=== PATIENT | female | born 1945 | race Caucasian/White ===

== ENCOUNTER → 2016-10-25 14:39 | Outpatient (CLI) | payer MEDICARE ==
[2016-07-09 13:17] VITALS: BMI 32.6
[~2016-10-25 14:39] MED LIST: ACETAMINOPHEN325 MG PO; ADVAIR 100/501 DISK INH; ALOPHEN PILLS5 MG PO; ARTANE2 MG PO; BUMEX 1 MG TAB1 MG PO; BUMEX2 MG PO; CARAFATE1 G PO; CELEXA20 MG PO; CHRONULAC30 ML PO; CLEOCIN HCL150 MG PO; COLACE100 MG PO; COMBIVENT RESPIM4 GM INH; COUMADIN5 MG PO; DEMEROL50 MG PO; DIABETA5 MG PO; DIFLUCAN150 MG PO; DUONEB 2.5-0.5 M3 ML UPD; ELIQUIS2.5 MG PO; HUMALOG 30100 UNITS/ SC; IBUPROFEN200 MG PO; K-DUR20 MEQ PO; LANTUS SOL100 UNIT/1 SQ; LEXAPRO20 MG PO; LISINOPRIL-HCTZ1 T13 PO; LOVENOX120 MG/0.8; LOVENOX80 MG/0.8; MELATONIN 3 MG1 TAB PO; MIRALAX17 GM PO; NORCO 10/325 TA1 TA1 PO; NORVASC10 MG PO; OMEPRAZOLE20 M1 PO; PHENAZOPYRIDIN200 MG PO; PRILOSEC10 M1 PO; PROAIR HFA8.5 GM INH; PROTONIX 40 MG40 MG PO; PROTONIX20 MG PO; PROTONIX40 MG PO; PROZAC10 MG PO; REGLAN10 MG PO; RENA-VITE TABL0.8 MG PO; RENVELA800 MG PO; ROCEPHIN 1 GM/D51 G1 IM; SINEMET 25-1001 EACH PO; STERAPRED DS 1210 MG NG; TESSALON PERLE100 MG PO; VITAMIN D31000 UNI2 PO; XANAX0.25 MG PO; XIFAXAN550 MG PO; ZANTAC150 MG PO; ZEBETA5 MG PO; ZINC OXIDE 20 %30 GM; ZOFRAN4 MG PO
== END | disposition home or self-care (01) ==
LOC: D.CT 14:30
DX: R10.9 Unspecified abdominal pain (principal)

== ENCOUNTER → 2016-11-06 08:57 | Outpatient (CLI) | payer MEDICARE ==
[2016-07-09 13:17] VITALS: BMI 32.6
== END | disposition home or self-care (01) ==
LOC: D.NM 08:57
DX: R10.9 Unspecified abdominal pain (principal)

== ENCOUNTER 2017-01-07 15:14 | Inpatient (IN) | payer MEDICARE ==
[~2017-01-07] VITALS: Ht 160 cm; Wt 71.4 kg
--- NOTE | ~2017-01-07 | DS ---
PATIENT:TYREE HANNAH :43 MEDICAL RECORD: [id number] DISCHARGE SUMMARY ADMISSION DATE: 01/08/17 DISCHARGE DATE: 01/11/17 REASON FOR ADMISSION: Mental status changes with hepatic encephalopathy and acute cystitis with multiple bacteria. HOSPITAL COURSE: This is [id number] female was admitted with acute mental status changes. It has resolved and her mental status is back to baseline. GI was consulted. Dr. Uribe is recommending lactulose 30 cc b.i.d. We spent nearly an hour attempting to discharge this nice lady so the dictation is going to be brief, but I did spend over an hour, some due to computer issues. PHYSICAL EXAMINATION: GENERAL: She is alert and oriented times 3. Normocephalic. VITAL SIGNS: Stable. HEENT: Clear nares. Clear throat. No JVD or thyromegaly. CHEST: Regular rhythm. S1 and S2. LUNGS: Clear to auscultation. ABDOMEN: Nontender in all 4 quadrants. No clubbing, cyanosis or edema. Dialysis access is clean. MEDICATIONS: No changes in her medications other than the addition of Omnicef 300 mg one a day for 10 days. DISCHARGE INSTRUCTIONS: She is to follow up with [facility] for her dialysis. [facility] Continue her current diet, renal diet. No other medication changes other than lactulose 30 cc b.i.d. Greater than 30 minutes was spent on discharge. Stable on discharge. TRANSINT:[id number] Voice Confirmation ID: [id number] DOCUMENT ID: [id number] ERIS BAY MD CC: [id number] DICTATION DATE: 01/11/17 0758 ACCESS REP: 01/12/17 0236 DIS IN 01/11/17 [facility] [address] [place] [address]
[2017-01-07 16:19] LABS: BASOPHILS 0.3 % (0-2); HEMATOCRIT 32.8 % (36.0-48.0); HEMOGLOBIN 10.8 g/dL (12-16); LYMPHOCYTES 12.4 % (15-50); MCH 33.8 pg (26.0-34.0); MCHC 32.9 g/dL (31.0-37.0); MCV 102.5 fL (80.0-100.0); MEAN PLATELET VOLUME 11.1 fL (7.4-10.4); MONOCYTES 10.4 % (2-11); NEUTROPHILS 74.9 % (40-80); PLATELET COUNT 115 10x3/uL (130-400); RDW 13.9 % (11.5-14.5); WBC 6.4 10x3/uL (4.8-10.8)
[2017-01-07 16:37] LABS: ALBUMIN 3.1 g/dL (3.4-5.0); ANION GAP 11.4 mmol/L (8-16); BILIRUBIN - TOTAL 1.39 mg/dL (0.2-1.3); CARBON DIOXIDE 29.6 mmol/L (21.0-32.0); CREATININE - SERUM 3.6 mg/dL (0.6-1.3); PROTEIN - SERUM 8.5 g/dL (6.4-8.2); TROPONIN-I 0.053 ng/mL (0.000-0.060)
[2017-01-07 20:13] LABS: APPEARANCE HAZY (CLEAR); BILIRUBIN NEGATIVE (NEGATIVE); COLOR YELLOW (YELLOW); GLUCOSE NEGATIVE (NEGATIVE); KETONE NEGATIVE (NEGATIVE); LEUKOCYTE ESTERASE 2+ (NEGATIVE); NITRITE NEGATIVE (NEGATIVE); PROTEIN TRACE mg/dL (NEGATIVE); UROBILINOGEN NORMAL (NORMAL)
[2017-01-07 20:15] LABS: BACTERIA MANY /hpf (NONE SEEN); EPITHELIAL CELLS 0-5 /hpf (0-5); RED CELLS - URINE 0-5 /hpf (0-5)
[2017-01-07 20:31] LABS: UDS - AMPHET NEGATIVE QUAL (NEGATIVE); UDS - BARB NEGATIVE QUAL (NEGATIVE); UDS - BENZO NEGATIVE QUAL (NEGATIVE); UDS - COCAINE NEGATIVE QUAL (NEGATIVE); UDS - METH NEGATIVE QUAL (NEGATIVE); UDS - OPIATE NEGATIVE QUAL (NEGATIVE); UDS - PCP NEGATIVE QUAL (NEGATIVE); UDS - THC NEGATIVE QUAL (NEGATIVE)
--- NOTE | 2017-01-07 20:53 | NUR ---
RECIEVED TO ROOM 2133 FROM ER VIA WC. VITALS STABLE. IV TO RIGHT HAND SL. DRSG NOTED TO LEFT ARM AVF. PT DENIES PAIN OR NEEDS, AT THIS TIME, BED LOW, CL IN REACH, BOX ALARM PLACED ON PT FOR FALL PRECAUTIONS. WILL CONT TO MONITOR.
[2017-01-07 21:12] VITALS: BP 124/48
--- NOTE | 2017-01-07 22:20 | NUR ---
PLACED ON TELEMETRY, 80 SR WITH BBB, PER MT.
[2017-01-07 23:54] VITALS: BP 105/47
--- NOTE | 2017-01-08 00:42 | NUR ---
PAYROLL AUDITOR AT BEDSIDE FOR VS. NEEDS ADDRESSED AT THIS TIME. CALL LIGHT IN REACH. WILL CONT TO MONITOR.
[2017-01-08 00:48] VITALS: BP 124/48; BMI 26.2
--- NOTE | 2017-01-08 03:49 | NUR ---
PT INCONTINENT OF STOOL, PT CLEANED AND PADDING CHANGED.
[2017-01-08 04:05] VITALS: BP 104/43
--- NOTE | 2017-01-08 06:52 | NUR ---
RECEIVED REPORT FROM CHILD WELFARE CASEWORKER NURSE, TERRANCE MARTINS. PT IN BED, DENIES ANY NEEDS AT THIS TIME. CALL LIGHT IN REACH, NAD NOTED, WILL CONTINUE TO MONITOR.
[2017-01-08 08:16] VITALS: BP 171/85
[2017-01-08 11:51] VITALS: BP 111/47
--- NOTE | 2017-01-08 12:26 | NUR ---
INFORMED PT ABOUT WEARING SCD'S TO PREVENT CLOTS, PT REFUSED TO WEAR THEM AT THIS TIME. STATED THAT SHE WOULD WEAR THEM AT NIGHT. PT FEELING A NAUSEATED. WILL CALL AND ORDER SOMETHING FOR NAUSEA. PT DENIES ANY OTHER NEEDS AT THIS TIME, CALL LIGHT IN REACH, NAD NOTED, WILL CONTINUE TO MONITOR.
[2017-01-08 14:02] VITALS: Ht 160 cm; Wt 71.4 kg
--- NOTE | 2017-01-08 15:33 | NUR ---
DR. CUEVAS NOTIFIED ABOUT CRITICAL AMMONIA LEVEL OF 142. DR. CUEVAS STATED THAT HE WILL ORDER SOME KAYEXELATE AND CONSULT GI.
--- NOTE | 2017-01-08 15:35 | NUR ---
DR. PROCTOR NOTIFIED ABOUT CRITICAL AMMONIA LEVEL OF 142. DR. PROCTOR STATED THAT HE WOULD ORDER LACTULOSE AND CONSULT GI.
[2017-01-08 16:42] VITALS: BP 122/45
[2017-01-08 20:29] VITALS: BP 106/49
--- NOTE | 2017-01-08 21:54 | NUR ---
HS MEDS GIVEN. PT ALERT/NO C/O PAIN OR DISCOMFORT. BOX ALARM ATTACHED. CPOC.
[2017-01-09 00:10] VITALS: BP 141/63
[2017-01-09 05:28] VITALS: BP 121/62
[2017-01-09 07:15] LABS: % SATURATION 61 % (15-55); IRON 101 ug/dl (35-150); TOTAL IRON BIND CAPACITY 164 ug/dl (260-445); UNSAT IRON BIND CAPACITY 63 ug/dl (150-375)
[2017-01-09 08:09] LABS: BILIRUBIN - DIRECT 0.28 mg/dL (0.00-0.30); BILIRUBIN - TOTAL 0.8 mg/dL (0.2-1.3)
[2017-01-09 08:20] VITALS: BP 179/71
--- NOTE | 2017-01-09 09:29 | NUR ---
Wound Care: Sacrum: 0.5cm x 0.5cm x 0.7cm stage 3 pressure injury/pt states she's had it for "a long time". No drainage or odor noted, but the periwound is macerated. Pt is incontinent of bowels and bladder. Sacrum/left: 0.6cm x 0.3cm x 0.2cm stage 2 pressure injury. No odor or drainage noted, but periwound is macerated. Coccyx/right/left: Noted scarring from previous pressure injuries. Pt requires total care with each incontinent episode. Recommend covering sacral area with mepilex sacral dressing to protect. If dressing becomes soiled it will need to be changed. She can help with repositioning and requires assistance q2h in doing so to protect her skin and decrease risk of further issues. Wound care will continue to monitor.
--- NOTE | 2017-01-09 13:27 | CN ---
PATIENT NAME:TYREE HANNAH MEDICAL RECORD: [id number] : 43 LOCATION:D. D.2133 ADMIT DATE: 01/08/17 ACCOUNT: [id number] CONSULTING PHYSICIAN: DAVIDA BENNETT MD REFERRING PHYSICIAN: CRISS PROCTOR MD DATE OF CONSULTATION: 01/08/2017 Gastrointestinal Consultation REFERRING PHYSICIAN: Criss Proctor M.D. HISTORY OF PRESENT ILLNESS: The patient is a 71-year-old white female with history of end-stage renal disease on hemodialysis, hypertension, coronary artery disease, valvular heart disease, status post aortic valve replacement, who basically was admitted with some confusion. Workup thus far includes ultrasound of the abdomen, which revealed possible cirrhosis, but no ascites or mass. Ammonia level is mildly elevated at 51. I was asked to see the patient in this regard. The patient seems a little lethargic, but is fairly alert and oriented times 3. She answered my questions fairly easily. She denies any history of liver disease or alcohol use as far as she knows. PAST MEDICAL HISTORY: As above. She also has Parkinson disease, chronic neuropathy and apparently had ovarian cancer. PAST SURGICAL HISTORY: Remarkable for cholecystectomy about 3 years ago, repair of a hip fracture, left knee replacement, ventral hernia repair, couple of C-sections, hysterectomy, aortic valve replacement, C-spine surgery. ALLERGIES: HEPARIN, NPH, SULFA, CELEXA, LISINOPRIL, CODEINE, MORPHINE, AND EFFEXOR. HOME MEDICATIONS: Include Protonix, Prozac, Sinemet, bisacodyl, MiraLax, Renvela, Colace, melatonin, Zofran and ProAir. FAMILY HISTORY: Negative for GI diseases. The patient is a nonsmoker, nondrinker at present. REVIEW OF SYSTEMS: Noncontributory other than HPI. PHYSICAL EXAMINATION: GENERAL: Reveals an elderly, somewhat lethargic white female in no acute distress. VITAL SIGNS: Stable. She is afebrile. CHEST: Clear. HEART: Regular rate and rhythm. ABDOMEN: Soft, nontender. EXTREMITIES: No edema. LABORATORY DATA: Reveals white count of 6000, hematocrit 32, MCV of 102, platelet count 115,000. Electrolytes normal. BUN 40, creatinine 3.6, total bilirubin 1.4, AST 44, ALT 31, alkaline phosphatase 251, ammonia levels 51, albumin 3.1 and tox screen is negative. Alcohol level was 0. CONSULT REPORT [id number] TYREE HANNAH IMPRESSION: 1. Mild confusion, possibly due to mild underlying hepatic encephalopathy, but no known history of cirrhosis. 2. History of end-stage renal disease on hemodialysis, history of hypertension, COPD, valvular heart disease, status post aortic valve replacement. 3. Macrocytosis. RECOMMENDATION: 1. Liver, spleen scan. 2. Check a fiber SPECT level. 3. Check a elizalde liver lab. 4. Check B12 and folate level. 5. Okay with lactulose for now. She was started on today. TRANSINT:[id number] Voice Confirmation ID: [id number] DOCUMENT ID: [id number] DAVIDA BENNETT MD at 1327 CC: CRISS PROCTOR MD [id number] DICTATION DATE: 01/08/171841 RUBBER STAMP MAKER: 01/09/17 0946 ADM IN [facility] [address] [place] [address]
--- NOTE | 2017-01-09 14:13 | NUR ---
DIALYSIS COORDINATOR: [facility]: Notified by Onur CORDOBA of patient needing to be setup for OPHD. DC will initiate placement process. DIDI HOLT.
[2017-01-09 14:21] LABS: BASOPHILS 0.5 % (0-2); EOSINOPHILS 4.9 % (0-7); HEMOGLOBIN 10.4 g/dL (12-16); LYMPHOCYTES 15.9 % (15-50); MCH 34.2 pg (26.0-34.0); MCHC 32.5 g/dL (31.0-37.0); MONOCYTES 13.3 % (2-11); NEUTROPHILS 65.4 % (40-80); PLATELET COUNT 131 10x3/uL (130-400); RBC 3.04 10x6/uL (4.00-5.40); RDW 14.4 % (11.5-14.5)
[2017-01-09 14:23] LABS: MCV 105.3 fL (80.0-100.0)
[2017-01-09 14:27] LABS: ANION GAP 16.7 mmol/L (8-16); CALCIUM 8.9 mg/dL (8.5-10.1)
[2017-01-09 14:28] LABS: CREATININE - SERUM 5.7 mg/dL (0.6-1.3); POTASSIUM - SERUM 3.7 mmol/L (3.5-5.1)
[2017-01-09 16:02] VITALS: BP 153/71
--- NOTE | 2017-01-09 17:32 | NUR ---
RESTING IN BED. DIALYSIS TODAY AND LIVER SCAN COMPLETE. DENIES PAIN OR SOB. SITTING UP IN BED EATING. WOUND CARE NURSE ASSESS WOUND ON COCCYX. MEPOLEX DRESSING PLACED ON WOUND. DENIES ANY NEEDS. CONTINUE PLAN OF CARE AND SAFETY PRECAUTIONS.
[2017-01-09 20:00] VITALS: BP 158/57
--- NOTE | 2017-01-09 20:16 | NUR ---
PT RESTING IN BED. SR PER TELEMETRY. NONLABORED RESPIRATIONS ON ROOM AIR. SALINE LOCK TO RIGHT HAND. ALERT/ORIENTED. HAS LEFT ARM AVF. MEPILEX ON REAR WHERE PT HAS BREAKDOWN. CURRENTLY PT IN ROOM VISITING WITH FAMILY. CPOC. SEE SHIFT ASSESSMENT.
--- NOTE | 2017-01-09 22:32 | NUR ---
RESTING, WATCHING TV. HS MEDS GIVEN. SR PER TELEMETRY. RIGHT HAND SALINE LOCKED. LEFT ARM RESERVED FOR AVF. HAD HEMODIALYSIS TODAY. PT IS ALERT/ORIENTED AND CONVERSING APPROPRIATELY. CPOC.
[2017-01-10] VITALS: BP 121/57
[2017-01-10 04:00] VITALS: BP 132/58
[2017-01-10 06:27] LABS: BASOPHILS 0.4 % (0-2); EOSINOPHILS 4.2 % (0-7); HEMATOCRIT 29.5 % (36.0-48.0); LYMPHOCYTES 16.1 % (15-50); MCHC 33.9 g/dL (31.0-37.0); MEAN PLATELET VOLUME 11.5 fL (7.4-10.4); MONOCYTES 14.4 % (2-11); NEUTROPHILS 64.9 % (40-80); PLATELET COUNT 120 10x3/uL (130-400); RBC 2.86 10x6/uL (4.00-5.40); RDW 14.1 % (11.5-14.5); WBC 5.7 10x3/uL (4.8-10.8)
[2017-01-10 06:37] LABS: ANION GAP 10.5 mmol/L (8-16); CALCIUM 8.6 mg/dL (8.5-10.1); CARBON DIOXIDE 31.1 mmol/L (21.0-32.0); POTASSIUM - SERUM 3.6 mmol/L (3.5-5.1)
[2017-01-10 06:40] LABS: MCV 103.1 fL (80.0-100.0)
[2017-01-10 06:41] LABS: CREATININE - SERUM 4.2 mg/dL (0.6-1.3)
[2017-01-10 08:20] LABS: FOLATE (FOLIC ACID) - SERUM >20.0 ng/mL (>3.0)
[2017-01-10 08:26] VITALS: BP 186/70
[2017-01-10 09:17] LABS: ALPHA FETOPROTEIN -(TUMOR MRK) 2.4 ng/mL (0.0-8.3)
[2017-01-10 10:19] LABS: HEPATITIS C ANTIBODY <0.1 (0.0-0.9)
[2017-01-10 12:38] VITALS: BP 115/48
[2017-01-10 15:25] LABS: HAPTOGLOBIN <10 mg/dL (34-200)
--- NOTE | 2017-01-10 15:25 | NUR ---
PT RESTING QUIETLY IN BEDSIDE CHAIR WITH EYES CLOSED. WOKE PT FOR IVPB ROCEPHIN. CONNECTED PT AND ITS INFUSING VIA R.HAND PIV ACCESS. DRSG CDI AND SWAB CAPS IN USE. PT DENIES ANY FURTHER NEEDS AT THIS TIME. CL IN REACH, WILL CTM.
[2017-01-10 16:56] VITALS: BP 103/42
[2017-01-10 20:00] VITALS: BP 125/50
--- NOTE | 2017-01-10 21:07 | NUR ---
HS MEDS GIVEN, PT DENIES PAIN OR NEEDS, BED LOW, CL IN REACH.
--- NOTE | 2017-01-10 22:46 | NUR ---
CALL LIGHT IN REACH, WILL CONTINUE WITH PLAN OF CARE.
[2017-01-11] VITALS: BP 119/47
--- NOTE | 2017-01-11 01:15 | NUR ---
RESTING WITH EYES CLOSED, RESPERATIONS EVEN, NO S/S DISTRESS NOTED.
[2017-01-11 04:00] VITALS: BP 118/56
[2017-01-11 04:58] LABS: BASOPHILS 0.3 % (0-2); EOSINOPHILS 6.8 % (0-7); HEMATOCRIT 27.4 % (36.0-48.0); HEMOGLOBIN 9.2 g/dL (12-16); IMMATURE GRANULOCYTES 0.2 % (0-5); LYMPHOCYTES 18.5 % (15-50); MCH 34.1 pg (26.0-34.0); MCHC 33.6 g/dL (31.0-37.0); MCV 101.5 fL (80.0-100.0); MEAN PLATELET VOLUME 11.1 fL (7.4-10.4); MONOCYTES 10.9 % (2-11); NEUTROPHILS 63.3 % (40-80); PLATELET COUNT 108 10x3/uL (130-400); RDW 13.6 % (11.5-14.5); WBC 5.8 10x3/uL (4.8-10.8)
[2017-01-11 05:11] LABS: ANION GAP 13.6 mmol/L (8-16); CARBON DIOXIDE 27.8 mmol/L (21.0-32.0); POTASSIUM - SERUM 3.4 mmol/L (3.5-5.1)
[2017-01-11 05:13] LABS: CALCIUM 8.8 mg/dL (8.5-10.1); CREATININE - SERUM 5.6 mg/dL (0.6-1.3)
[2017-01-11] MEDS ORDERED: OMNICEF300 MG PO (07:23)
[2017-01-11 08:30] VITALS: BP 156/63
--- NOTE | 2017-01-11 09:40 | NUR ---
PT LEAVING UNIT FOR DIALYSIS.
--- NOTE | 2017-01-11 11:31 | NUR ---
Patient Name: TYREE HANNAH Admission Status: ER Accout number: [id number] Admission Date: 01-08-2017 : 1945 Admission Diagnosis:HEPATIC FAILURE, UNSPECIFIED WITHOUT COMA Attending: BARBARA Current LOS: 3 Anticipated DC Date: 01-11-2017 Planned Disposition: Nursing Facility [facility] Cert Primary Insurance: MEDICARE A & B PLANNED EXTERNAL PROVIDER: [facility], CUSTODIAL CARE MEDICAID BED Discharge Planning Comments: * Is the patient Alert and Oriented? Yes 0 * How many steps to enter\exit or inside your home? NONE 0 * PCP DR. LANCE 0 * Pharmacy [facility] 0 * Preadmission Environment [facility] 0 * Facility Name [facility] 0 * ADLs Partial Dependent 0 * Partial ADLs (Assistance needed) Bathing Dressing Medication Management Toileting 0 * Equipment Other 0 * Other Equipment ALL EQUIPMENT PROVIDED BY NURSING FACILITY 0 * List name and contact numbers for known caregivers / representatives who currently or will assist patient after discharge: LIANG HANNAH, SPOUSE, 0 * Community resources currently utilized None 0 * Please name any agencies selected above. NONE 0 * Additional services required to return to the preadmission environment? No 0 * Can the patient safely return to the preadmission environment? Yes 0 * Has this patient been hospitalized within the prior 30 days at any hospital? No 0 CM ATTEMPTED TO MEET WITH PTX2 IN ROOM TO DISCUSS DISCHARGE PLANNING AND NEEDS, PT IN DIALYSIS. CM CALLED PT'S SPOUSE, LIANG, . LIANG REPORTS PT LIVING AT [facility] IN CUSTODIAL CARE. ALL MEDICAL EQUIPMENT PROVIDED BY FACILITY AND STAFF ASSISTS PT WITH MEDS, BATHING, DRESSING AND TOILETING. PT WILL RETURN THERE TODAY AT DISCHARGE. LIANG REPORTS HE WILL PICK HER UP AND TRANSPORT TO THE [facility]. LIANG REPORTS HE WILL MEET PT THERE LATER TODAY AT [facility] INSTEAD OF DRIVING TO [place]. CM DISCUSSED IMPORTANT MESSAGE FROM MEDICARE AND LEFT COPY IN ROOM FOR PT WITH CM CONTACT INFORMATION. CM CALLED [facility], , NOTIFIED FREDY OF PT'S DISCHARGE TODAY AFTER DIALYSIS. CM FAXED DISCHARGE INFORMATION TO [place] AT [phone]. NURSE REPORT TO BE CALLED TO [facility], [facility] NURSE, . PT'S SPOUSE TO TRANSPORT. Track And Field Coach: Roberto Moncada
--- NOTE | 2017-01-11 13:42 | NUR ---
PT JUST RETURNED FROM DIALYSIS. VSS. PT READY TO BE DISCHARGE. PAPERS IN PROCESS. WILL CTM.
--- NOTE | 2017-01-11 14:05 | NUR ---
D/C PTS R.HAND PIV WITH CATHETER TIP FULLY INTACT. TELEMETRY RETURNED TO [employer]. BELONGINGS COLLECTED. AWAITING DISCHARGE PAPERS.
--- NOTE | 2017-01-11 15:39 | NUR ---
DISCHARGE TEACHING PROVIDED AND PAPERS SIGNED. CALLED REPORT TO [facility], [facility] NURSE EUNICE. ASSISTED PT INTO CAR WITH HER . PT DENIES ANY PAIN OR FURTHER NEEDS.
[2017-01-14 14:17] LABS: SMOOTH MUSCLE ABS (ACTIN) 27 Units (0-19)
[2017-01-14 16:12] LABS: ANA REFLEX - ANTICHROMATIN ABS <0.2 AI (0.0-0.9); ANA REFLEX - CENTROMERE B ABS <0.2 AI (0.0-0.9); ANA REFLEX - DBL STRANDED DNA 1 IU/mL (0-9); ANA REFLEX - DIRECT Positive (Negative); ANA REFLEX - JO-1 AB <0.2 AI (0.0-0.9); ANA REFLEX - RNP ANTIBODIES <0.2 AI (0.0-0.9); ANA REFLEX - SCL-70 <0.2 AI (0.0-0.9); ANA REFLEX - SJOGRENS AB SSA <0.2 AI (0.0-0.9); ANA REFLEX - SJOGRENS AB SSB 1.5 AI (0.0-0.9); ANA REFLEX - SMITH AB <0.2 AI (0.0-0.9)
== END 2017-01-11 15:53 | DRG 441 ==
LOC: D.ER 15:14 → D.M2 19:40 → OBSVTIME 19:40 → D.M2 01-08 16:18
PROVIDERS: Emergency Medicine; Internal Medicine Gastroenterology; ADMIT Internal Medicine Nephrology
PROC: 5A1D60Z (ICD-10-PCS; principal; 2017-01-09)
DX: K72.90 Hepatic failure, unspecified without coma (principal); N18.6 End stage renal disease; I12.0 Hypertensive chronic kidney disease with stage 5 chronic kidney disease or end stage renal disease; N39.0 Urinary tract infection, site not specified; F05 Delirium due to known physiological condition; Z99.2 Dependence on renal dialysis; I25.10 Atherosclerotic heart disease of native coronary artery without angina pectoris; G20 Parkinson's disease; G62.9 Polyneuropathy, unspecified; K21.9 Gastro-esophageal reflux disease without esophagitis; F32.9 Major depressive disorder, single episode, unspecified; J44.9 Chronic obstructive pulmonary disease, unspecified; D75.89 Other specified diseases of blood and blood-forming organs; Z95.2 Presence of prosthetic heart valve

== ENCOUNTER 2017-03-25 19:06 | Emergency (ER) | payer MEDICARE ==
[2017-01-08 14:02] VITALS: BMI 26.2
[~2017-03-25 19:06] MED LIST changes: +OMNICEF300 MG PO
[2017-03-25 20:11] LABS: ALBUMIN 2.8 g/dL (3.4-5.0); ALKALINE PHOSPHATASE 209 U/L (46-116); ALT (SGPT) 26 U/L (10-68); BILIRUBIN - TOTAL 0.55 mg/dL (0.2-1.3); CALC OSMOLALITY 288 mosm/kg (275-300); CALCIUM 8.9 mg/dL (8.5-10.1); CARBON DIOXIDE 34.3 mmol/L (21.0-32.0); CHLORIDE - SERUM 101 mmol/L (98-107); CREATININE - SERUM 4.6 mg/dL (0.6-1.3); GLUCOSE 138 mg/dL (74-106); POTASSIUM - SERUM 4.1 mmol/L (3.5-5.1); PROTEIN - SERUM 7.7 g/dL (6.4-8.2); SODIUM 140 mmol/L (136-145); UREA NITROGEN 36 mg/dL (7-18); eGFR NON AFRICAN AMERICAN 10 mL/min (90-120)
[2017-03-25 20:15] LABS: BASOPHILS 0.7 % (0-2); EOSINOPHILS 4.7 % (0-7); HEMATOCRIT 32.8 % (36.0-48.0); HEMOGLOBIN 10.8 g/dL (12-16); IMMATURE GRANULOCYTES 0.2 % (0-5); LYMPHOCYTES 19.1 % (15-50); MCH 34.4 pg (26.0-34.0); MCHC 32.9 g/dL (31.0-37.0); MCV 104.5 fL (80.0-100.0); MEAN PLATELET VOLUME 11.4 fL (7.4-10.4); MONOCYTES 13.5 % (2-11); NEUTROPHILS 61.8 % (40-80); RBC 3.14 10x6/uL (4.00-5.40); RDW 13.2 % (11.5-14.5); WBC 4.2 10x3/uL (4.8-10.8)
[2017-03-25 20:17] LABS: PLATELET COUNT 92 10x3/uL (130-400)
[2017-03-25 20:22] LABS: AMYLASE - SERUM 52 U/L (25-115); CKMB 1.5 U/L (0.0-3.6); CREATINE KINASE 63 UL (21-215); LIPASE 276 U/L (73-393); TROPONIN-I 0.056 ng/mL (0.000-0.060)
[2017-03-25 21:12] LABS: APPEARANCE HAZY (CLEAR); BILIRUBIN NEGATIVE (NEGATIVE); COLOR YELLOW (YELLOW); GLUCOSE NEGATIVE (NEGATIVE); KETONE NEGATIVE (NEGATIVE); LEUKOCYTE ESTERASE TRACE (NEGATIVE); NITRITE NEGATIVE (NEGATIVE); PROTEIN TRACE mg/dL (NEGATIVE); UROBILINOGEN NORMAL (NORMAL)
[2017-03-25 21:13] LABS: BACTERIA MANY /hpf (NONE SEEN); EPITHELIAL CELLS 0-5 /hpf (0-5); RED CELLS - URINE 0-5 /hpf (0-5)
== END 2017-03-25 22:21 | disposition home or self-care (01) ==
LOC: D.ER 19:06
PROVIDERS: Family Medicine
DX: S43.402A Unspecified sprain of left shoulder joint, initial encounter (principal); W06.XXXA Fall from bed, initial encounter; Y93.89 Activity, other specified; Y92.122 Bedroom in nursing home as the place of occurrence of the external cause; K59.00 Constipation, unspecified; N18.9 Chronic kidney disease, unspecified; D64.9 Anemia, unspecified; I50.9 Heart failure, unspecified; J44.9 Chronic obstructive pulmonary disease, unspecified; E11.9 Type 2 diabetes mellitus without complications; I44.7 Left bundle-branch block, unspecified

== ENCOUNTER 2017-05-20 15:21 | Inpatient (IN) | payer MEDICARE ==
--- NOTE | ~2017-05-20 | HEMODYNAMI ---
PATIENT:TYREE HANNAH MEDICAL RECORD: [id number] : 43 LOCATION:[facility] D.2309 ADMISSION DATE: 05/20/17 Generatedon:05/22/20179:30 Patient name: TYREE HANNAH Patient #: [id number] SSN: : 1945 Date of study: 05/22/2017 Page: Of Hemodynamic Procedure Report Patient Data Patient Demographics Procedure consent was obtained First Name: TYREE Gender: Female Last Name: CAMDEN : 1945 [facility] Initial: CARRIE Age: 72 year(s) Patient #: [id number] Race: Unknown Additional ID: [id number] Contact details Address: [place] [address] State: [place] City: [place] Zip code: [address] Past Medical History Allergies Allergen Reaction Date Comments Reported Other allergy 05/22/2017 NPH Insulin, Heparin, Sulfa, Celexa, Lisinopril, Morpine, Effexor, Codeine phosphate. Admission Admission Data Admission Date: 05/20/2017 Admission Time: 20:29 Room #: D.2309 Lab Results Lab Result Date: 05/22/2017 Lab Result Time: 5:45 CBC Name Units Result Min Max Hematocrit % 25.1 *-(----)-- 42 54 Hemoglobin g/dl 8.4 *-(----)-- 13.5 17.5 Procedure Procedure Types Cath Procedure Diagnostic Procedure Temporary Pacemaker Miscellaneous Procedures Moderate Sedation up to 30 minutes Procedure Description Procedure Date Procedure Date: 05/22/2017 Procedure Start Time: 8:58 Procedure End Time: 9:29 Procedure Staff Name Function Wai Iniguez MD Performing Physician Ksenia Nam RT Scrub Juan Rodriguez RT Scrub Julian Stone RT Monitor Von Palencia RN Senior Commercial Loan Officer Valentin Rosales RN Nurse Procedure Data Cath Procedure Fluoroscopy Diagnostic fluoroscopy Total fluoroscopy Time: 4.4 time: 4.4 min min Diagnostic fluoroscopy Total fluoroscopy dose: 164 dose: 164 mGy mGy Contrast Material Contrast Material Type Amount (ml) Isovue 300 0 Entry Location Entry Primary Successful Side Size Upsize Upsize Entry Closure Succe ssful Closure Location (Fr) 1 (Fr) 2 (Fr) Remarks Device Remarks Femoral Right 6 Fr Surgical vein Short Closure Required Estimated blood loss: 5 ml Procedure Complications No complications Procedure Medications Medication Administration Route Dosage 0.9% NaCl I.V. 100 ml/hr Oxygen NC 6 l/min Lidocaine 2% added to field 20 Hemodynamics Rest HGB: 8.4 (g/dl) Heart Rate: 34 (bpm) Snapshots Pre Cath Intra NCS Post Cath Vital Signs Time Heart Resp SPO2 etCO2 YB9kgiw NIBP (mmHg) Rhythm Pain Sedation Rate (ipm) (%) (mmHg) (mmHg) Status Level (bpm) 8:46:17 34 20 86 0 0 129/56(89) NSR 0 (11) 9(A) , No pain 8:51:00 34 24 87 0 0 141/47(112) NSR 0 (11) 9(A) , No pain 8:55:46 33 16 87 0 0 126/51(95) NSR 0 (11) 9(A) , No pain 9:00:29 33 23 86 0 0 124/51(87) NSR 0 (11) 9(A) , No pain 9:05:12 40 16 92 0 0 134/49(81) NSR 0 (11) 9(A) , No pain 9:09:54 78 16 93 0 0 125/58(88) NSR 0 (11) 9(A) , No pain 9:14:33 79 16 92 0 0 115/60(77) NSR 0 (11) 9(A) , No pain 9:19:11 80 18 93 0 0 120/59(83) NSR 0 (11) 9(A) , No pain 9:23:50 79 16 94 0 0 120/62(83) NSR 0 (11) 9(A) , No pain 9:28:28 97 17 95 0 0 124/57(90) NSR 0 (11) 9(A) , No pain Medications Time Medication Route Dose Verified Delivered Reason Notes Effectiven ess by by 8:52:31 0.9% NaCl I.V. 100 Valentin Valentin Per ml/hr Connie Rosales physician RN RN 8:52:55 Oxygen NC 6 Valentin Valentin Per l/min Connie Rosales physician RN RN 8:53:13 Lidocaine added 20ml Valentin Valentin for local 2% to vial Connie Rosales anesthetic field RN community sports coordinator Log Time Note 8:38:55 Informed consent obtained and on chart 8:39:18 Von Palencia RN sent for patient. Start room use. 8:39:18 Time tracking: Regular hours 8:39:22 Plan of Care:Hemodynamics will remain stable., Cardiac rhythm will remain stable., Comfort level will be maintained., Respiratory function will remain adequate., Patient/ family verbilizes understanding of procedure., Procedure tolerated without complication., Recovers from procedure without complications.. 8:40:57 Patient received from PCU to CCL 1 Alert and oriented. Tansferred to table in Supine position. 8:40:58 Warm blankets applied, and brian hugger turned on for patient comfort. 8:40:59 Correct patient and procedure confirmed by team. 8:41:00 ECG and BP/O2 sat monitors applied to patient. 8:45:27 Vital chart was started 8:50:43 Full Disclosure recording started 8:50:53 Rhythm: 1st degree heart block 8:50:57 Baseline sample Acquired. 8:52:03 H&P Date Dictated: 05/22/2017 Within 30 days and on chart.. 8:52:04 Pre-procedure instructions explained to patient. 8:52:05 Pre-op teaching completed and patient verbalized understanding. 8:52:07 Family in patients room. 8:52:09 Patient NPO since Midnight. 8:52:18 Is the patient allergic to Iodine/contrast media? No. 8:52:22 Is patient on blood thinner?No 8:52:24 Patient diabetic? No. 8:52:31 0.9% NaCl 100 ml/hr I.V. was administered by Valentin Rosales RN; Per physician; 8:52:33 Previous problem with sedation/anesthesia? Yes Slow to wake 8:52:35 Snore? Yes 8:52:37 Sleep apnea? Yes 8:52:38 Deviated septum? No 8:52:39 Opens mouth fully? Yes 8:52:40 Sticks out tongue? Yes 8:52:46 Airway obstruction? Yes Asthma 8:52:55 Oxygen 6 l/min NC was administered by Valentin Rosales RN; Per physician; 8:53:01 Dentures? Yes Out 8:53:13 Lidocaine 2% 20ml vial added to field was administered by Valentin Rosales RN; for local anesthetic; 8:53:30 IV patent on arrival in Rt subclavian with 0.9% NaCl at KVO. 8:53:39 Right groin area was prepped with chlora-prep and draped in sterile fashion 8:53:40 Alarms reviewed by R. N. 8:53:41 Sharps counted by scrub and verified by R.N. 8:53:49 Tegaderm 4 x 4 opened to sterile field. 8:53:57 Bag Decanter opened to sterile field. 8:53:59 Medline Cath Pack opened to sterile field. 8:54:13 Terumo 6Fr Glassport Sheath opened to sterile field. 8:54:24 5Fr J Tip Temporary Pacing Catheter opened to sterile field. 8:54:35 Physician arrived 8:54:35 --------ALL STOP TIME OUT------ 8:54:35 Final Timeout: patient, procedure, and site verified with staff and physician. All members of the team are in agreement. 8:54:37 Right groin site verified by team. 8:54:39 Physical assessment completed. ASA score P 2 - A patient with mild systemic disease as per Wai Iniguez MD. 8:54:44 Sedation plan: IV Moderate Sedation Versed, Fentanyl 8:55:37 Patient allergic to Other allergyNPH Insulin, Heparin, Sulfa, Celexa, Lisinopril, Morpine, Effexor, Codeine phosphate. 8:58:27 Procedure started. 8:58:44 Local anesthetic to right femoral vein with Lidocaine 2% by Wai Iniguez MD.INITIAL ACCESS ONLY 8:59:00 A 6 Fr Short sheath was inserted into the Right Femoral vein 9:01:07 Temporary pacer inserted 9:14:18 Temporary pacer turned on with the following settings: Rate 80, MA 5, Mode: Demand. 9:14:50 Temporary Pacemaker and Sheath sutured in to place. 9:14:58 Sheath removed intact; hemostasis achieved with Surgical Closure Required to the Right Femoral vein. 9:15:08 Procedure ended.(Physican Out) 9:15:26 Fluoroscopy time 04.40 minutes. 9:15:29 Flurop Dose total: 164 9:15:29 Fluoroscopy dose: 164 mGy 9:15:32 Contrast amount:Isovue 300 0ml. 9:15:33 Sharps counted by scrub and verified by R.N. 9:15:38 Insertion/operative site no bleeding no hematoma. 9:15:46 Post-op/insertion site Right Femoral vein dressed using a 4 x 4 and Tegaderm. 9:15:51 Post procedure rhythm: paced 9:15:55 Estimated blood loss: 5 ml 9:16:06 Post procedure instruction explained to patient.Patient verbalizes understanding. 9:17:24 Procedure type changed to Cath procedure, Diagnostic procedure, Temporary Pacemaker, Miscellaneous Procedures, Moderate Sedation up to 30 minutes 9:18:33 Procedure and supply charges have been captured, reviewed, submitted and are correct. 9:18:35 Procedure Complication : No complications 9:27:07 Lab Result : Hemoglobin 8.4 g/dl 9:27:07 Lab Result : Hematocrit 25.1 % 9:29:36 Vital chart was stopped 9:29:39 Report given to ICU. 9:29:41 Patient transfered to ICU with Stretcher. 9:29:44 Procedure ended. 9:29:44 Full Disclosure recording stopped 9:30:00 End room use (Document Last) Device Usage Item Name Manufacture Quantity Catalog Hospital Part Current Minimal Lot # / Number Charge Number Stock Stock Serial# Code Tegaderm 1 [id number] 5 4 x 4 Bag Microtek 1 [facility] [id number] 5 [employer] Medline Cardinal 1 [id number] 5 My COI 1 [id number] [id number] [id number] 40 6Fr Glassport Sheath 5Fr J Tip Jean 1 [id number] [id number] 618656 2 Temporary Lifesciences Pacing Catheter Signature Audit Burgin Stage Time Signature Unsigned Intra-Procedure 05/22/2017 Julian Stone 9:30:23 AM RT(R) Signatures Monitor : Julian Stone RT Signature : Date : Time : [id number] [place] [address]
[2017-05-20 15:48] LABS: BASOPHILS 0.2 % (0-2); EOSINOPHILS 2.6 % (0-7); HEMATOCRIT 21.8 % (36.0-48.0); IMMATURE GRANULOCYTES 0.2 % (0-5); LYMPHOCYTES 10.5 % (15-50); MCH 34.6 pg (26.0-34.0); MCV 104.8 fL (80.0-100.0); NEUTROPHILS 81.5 % (40-80); PLATELET COUNT 106 10x3/uL (130-400); RBC 2.08 10x6/uL (4.00-5.40); RDW 13.7 % (11.5-14.5)
[2017-05-20 16:04] LABS: HEMOGLOBIN 7.2 g/dL (12-16)
[2017-05-20 16:08] LABS: ALBUMIN 2.7 g/dL (3.4-5.0); BILIRUBIN - TOTAL 0.44 mg/dL (0.2-1.3); CALCIUM 8.5 mg/dL (8.5-10.1); CARBON DIOXIDE 25.9 mmol/L (21.0-32.0); CREATININE - SERUM 4.8 mg/dL (0.6-1.3); POTASSIUM - SERUM 3.9 mmol/L (3.5-5.1); PROTEIN - SERUM 6.8 g/dL (6.4-8.2)
--- NOTE | 2017-05-20 21:42 | NUR ---
RECEIVED REPORT FROM ROLAND IN ER, PT ORDERS WEREN'T IN COMPUTER, SHE WAS ADMITTED TO OUTPATIENT INSTED OF MED 2, HAD TO GET ADMISSION TO FIX, PT FAMILY WAS WITH HER, 02-2L, IV-R.WRIST, BED IS LOW, SRX2, CALL LIGHT IN REACH, WILL CONTINUE PLAN OF CARE
[2017-05-20] MEDS ORDERED: CHRONULAC30 ML PO (23:52)
[2017-05-20] MEDS ORDERED: EMLA CREAM 30 G30 G1 TOPICAL (23:53)
[2017-05-21] VITALS (7 sets, daily range): BP systolic 95–116; BP diastolic 35–58; BMI 27.3; BMI 28.1
--- NOTE | 2017-05-21 03:34 | NUR ---
ASSESSED PT , APPLIED DRESSING TO BOTTOM,ELEVATED FEET ON PILLOW
[2017-05-21 05:15] LABS: INR 1.19 (0.85-1.17)
[2017-05-21 05:16] LABS: BASOPHILS 0.5 % (0-2); EOSINOPHILS 3.8 % (0-7); IMMATURE GRANULOCYTES 0.3 % (0-5); LYMPHOCYTES 22.8 % (15-50); MCH 34.1 pg (26.0-34.0); MCHC 32.2 g/dL (31.0-37.0); MCV 105.9 fL (80.0-100.0); MEAN PLATELET VOLUME 10.9 fL (7.4-10.4); MONOCYTES 10.3 % (2-11); NEUTROPHILS 62.3 % (40-80); PLATELET COUNT 87 10x3/uL (130-400); WBC 3.9 10x3/uL (4.8-10.8)
[2017-05-21 05:17] LABS: HEMOGLOBIN 5.8 g/dL (12-16)
[2017-05-21 06:17] LABS: BASOPHILS 0.3 % (0-2); IMMATURE GRANULOCYTES 0.3 % (0-5); LYMPHOCYTES 23.5 % (15-50); MEAN PLATELET VOLUME 10.4 fL (7.4-10.4); MONOCYTES 10.8 % (2-11); NEUTROPHILS 61.1 % (40-80); PLATELET COUNT 84 10x3/uL (130-400); RDW 14.1 % (11.5-14.5); WBC 3.8 10x3/uL (4.8-10.8)
[2017-05-21 06:25] LABS: HEMOGLOBIN 6.4 g/dL (12-16); RBC 1.83 10x6/uL (4.00-5.40)
[2017-05-21 06:26] LABS: HEMATOCRIT 19.4 % (36.0-48.0)
[2017-05-21 06:32] LABS: ALBUMIN 2.3 g/dL (3.4-5.0); ANION GAP 13.2 mmol/L (8-16); BILIRUBIN - TOTAL 0.4 mg/dL (0.2-1.3); CALCIUM 8.6 mg/dL (8.5-10.1); CARBON DIOXIDE 27.4 mmol/L (21.0-32.0); PHOSPHOROUS 6.7 mg/dL (2.5-4.9); PROTEIN - SERUM 6.1 g/dL (6.4-8.2)
[2017-05-21 06:44] LABS: CREATININE - SERUM 6.6 mg/dL (0.6-1.3); POTASSIUM - SERUM 4.6 mmol/L (3.5-5.1)
--- NOTE | 2017-05-21 15:11 | NUR ---
Dialysis Coordinator: [facility]: [facility]: Sat/Sat/Sat @ 10:00. DIDI HOLT.
--- NOTE | 2017-05-21 17:39 | NUR ---
ALERT AND ORIENTED X4. CONSENT FOR BLOOD AND CVL PLACEMENT SIGNED ON CHART. INITIATES CVL PLACEMENT DOUBLE LUMEN. DENIES DIFFICULTY BREATHING. SINUS ANNA WITH 1st DEGREE BLOCK 39bpm ON TELEMETRY DUE TO BEING IN TRENDELENBURG POSITION. HOB ELEVATED 45 DEGREES. ASYMPTOMATIC OF LOW HEART RATE. WAITING FOR CHEST XRAY TO COMFIRM CVL PLACEMENT CORRECT FOR PRBC TRANSFUSION. BED LOCKED AND LOW. CALL LIGHT IN REACH. TWO SIDERAILS UP. FAMILY AT BEDSIDE.
--- NOTE | 2017-05-21 19:26 | NUR ---
LETHARGIC. CVL PLACEMENT XRAY STILL NOT READ. CALL RADIOLOGY FOR RESULTS. PATIENT PALE. COMPLAINS OF RT SIDE NECK HURTING. HR-38 SINUS ANNA. PAGE EMELYN, RENAL DISTRIBUTION SYSTEMS SUPERINTENDENT AND TO NOTIFY OF CHANGES. WAITING FOR CVL PLACEMENT RESULTS.
--- NOTE | 2017-05-21 20:00 | NUR ---
STARTED 1ST UNIT PRBC'S. B/P 87/28 AND HR 39 AR VERY LOW. PATIENT AWAKE AND ORIENTED X 4. CVL OOZING SOME. PLACED DRSG 4X4'S.
--- NOTE | 2017-05-21 23:30 | NUR ---
WIRE PREPARATION WORKER'S GAVE BATH, CHANGED BEDDING AND GOWN. CLEANED FOR INCONTINENCE OF STOOL. I CHANGED DRSG TO RIGHT AND LEFT BUTTOCK CHEEKS.
[2017-05-22] VITALS (16 sets, daily range): BP systolic 87–133; BP diastolic 46–85
--- NOTE | 2017-05-22 00:15 | NUR ---
STARTED 2ND UNIT PRBC'S. B/P 95/38 AND HR 35 STILL VERY LOW. 02 SAT'S AT 98% IB 2L/NC.
--- NOTE | 2017-05-22 01:37 | NUR ---
CALLED STACIA ESPINAL "VÍCTOR" RE: PATIENT'S LOW HR 33, REQUESTING TO CALL DR BAY. STATED TO WAKE PATIENT, CHECK 02 AND CODE STATUS.
--- NOTE | 2017-05-22 02:02 | NUR ---
INFORMED RENITA HERNANDEZ APN OF PATIENT'S VERY LOW HR OF 33. ORDER TO GET A OVEN HEATER CONSULT.
--- NOTE | 2017-05-22 02:10 | NUR ---
RECEIVED CALL BACK FROM JUVENAL HERNANDEZ APN. INFORMED HER OF PATIENT'S LOW HR 33 AND HAS BEEN IN THE 30'S SINCE 1800 LAST NIGHT. SHE IS ASYMTOMATIC, ORIENTED X 4 AND A LITTLE LETHARGIC. GAVE ORDER TO CONSULT LPN CMA.
--- NOTE | 2017-05-22 03:02 | NUR ---
CALLED TRAILER CHIEF LEAD SPRINKLER DR KAYE RE: PATIENT'S LOW HR 33 AND ABNORMAL EKG. AFTER GIVING EKG RESULTS, VITAL SIGNS AND HOME MEDICATIONS, STATED THIS WAS OK, "NOT TO WORRY". NO ORDERS GIVEN.
--- NOTE | 2017-05-22 06:00 | NUR ---
CHANGED CVL DRSG. ASSISTED LATHE HAND WITH CLEANING FOR INCONTINENCE OF STOOL. CHANGED DRSG'S ON RIGHT/LEFT BUTTOCK CHEEKS.
[2017-05-22 06:10] LABS: BASOPHILS 0.3 % (0-2); EOSINOPHILS 2.9 % (0-7); IMMATURE GRANULOCYTES 0.2 % (0-5); LYMPHOCYTES 23.8 % (15-50); MCH 33.6 pg (26.0-34.0); MCHC 33.5 g/dL (31.0-37.0); MEAN PLATELET VOLUME 11.2 fL (7.4-10.4); NEUTROPHILS 63.8 % (40-80); PLATELET COUNT 98 10x3/uL (130-400); RDW 18.4 % (11.5-14.5)
[2017-05-22 06:19] LABS: HEMATOCRIT 25.1 % (36.0-48.0); HEMOGLOBIN 8.4 g/dL (12-16); MCV 100.4 fL (80.0-100.0); WBC 5.9 10x3/uL (4.8-10.8)
--- NOTE | 2017-05-22 08:06 | NUR ---
ALERT AND ORIENTED X4. DYSPNEA. HR-33bpm SECOND DEGREE BLOCK ON TELEMETRY. COMPLAINS OF NAUSEA. PERSISTANT COUGH. NOTIFY EMELYN RENAL HOP STRAINER AND . ORDER TO TRANSFER TO ICU PER . PAGE UNABLE TO HAVE EGD TODAY. NOTIFY LOAN MANAGER NEED FOR TRANSFER.
--- NOTE | 2017-05-22 08:40 | NUR ---
ALERT AND ORIENTED X4. CONSENT FOR TEMPORARY PACEMAKER SIGNED ON CHART. TAKEN TO FAMILY RESOURCE MANAGEMENT SPECIALIST VIA BED. REPORT CALLED TO LAKSHMI RDZ IN ICU. GOING TO ROOM 5169.
--- NOTE | 2017-05-22 11:09 | NUR ---
RADIOLOGY IN ROOM FOR CHEST XRAY AT THIS TIME.
[2017-05-22 11:26] LABS: ALBUMIN 2.5 g/dL (3.4-5.0); BILIRUBIN - TOTAL 1.18 mg/dL (0.2-1.3); CALCIUM 8.6 mg/dL (8.5-10.1); CARBON DIOXIDE 22.9 mmol/L (21.0-32.0); MAGNESIUM - SERUM 2.3 mg/dL (1.8-2.4); PHOSPHOROUS 8.7 mg/dL (2.5-4.9); PROTEIN - SERUM 6.5 g/dL (6.4-8.2)
[2017-05-22 11:27] LABS: ANION GAP 20.7 mmol/L (8-16); CREATININE - SERUM 8.7 mg/dL (0.6-1.3); POTASSIUM - SERUM 5.6 mmol/L (3.5-5.1)
[2017-05-22 11:28] LABS: TROPONIN-I 0.215 ng/mL (0.000-0.060)
--- NOTE | 2017-05-22 19:40 | NUR ---
REPORT REC'D AND CARE ASSUMED, REC'D PT AWAKE, ALERT, ORIENTED X 4, O2 @ 4LITERS VIA NC, RIJDL DRSG WITH SEROUS DRAINAGE NOTED, NS @ 10CC/HR INFUSING, CM-PACED @ 80, RIGHT GROIN TRANSVENOUS P/M VVI 80 VMA 5, DRSG CDI, NO BLEEDING NOTED, RIGHT WRIST PIV SALINE LOCKED, LEFT FOREARM AV FISTULA PALPABLE THRILL AND AUDIBLE BRUIT, PP WEAK, BED IN REVERSE TRENDELENBERG FOR COMFORT, PT DENIES PAIN OR NEEDS, WILL MONITOR CLOSELY FOR CHANGES, CALL LIGHT IN REACH.
--- NOTE | 2017-05-22 20:30 | NUR ---
ROUTINE MEDS GIVEN, PT RESTING IN BED EYES CLOSED, BP 89/58, WILL MONITOR CLOSELY FOR CHANGES.
--- NOTE | 2017-05-22 21:00 | NUR ---
NO VISITORS IN AT THIS TIME
--- NOTE | 2017-05-22 22:10 | NUR ---
PT'S BP 81/55 MAP 62, BP HAS BEEN TRENDING DOWN OVER THE LAST HOUR, DR. MELA CARDENAS.
--- NOTE | 2017-05-22 22:15 | NUR ---
DR. PLAZA NOTIFIED OF DECREASED BP, ORDERS FOR LEVOPHED REC'D
--- NOTE | 2017-05-22 23:00 | NUR ---
REASSESSMENT COMPLETED, PT AWAKENS EASILY, ORIENTED AT THIS TIME, RIJ DRSG SATURATED WITH SEROUS DRAINAGE, CVL DRSG CHANGE PROVIDED AND REINFORCED WITH 2X2'S, PT TOLERATED WELL, PT REQUESTING FAMILY, EXPLAINED TO PT THAT FAMILY HAD GONE HOME FOR THE EVENING AND WOULD RETURN IN AM, PT VERBALIZES UNDERSTANDING, BP IMPROVED, WILL HOLD LEVOPHED FOR NOW, CM - V PACED @ 80, SR UP X 2, VISIBLE TO NURSES STATION.
[2017-05-23] VITALS (26 sets, daily range): BP systolic 83–116; BP diastolic 44–63
--- NOTE | 2017-05-23 01:00 | NUR ---
NO CHANGES IN STATUS AT THIS TIME.
--- NOTE | 2017-05-23 02:20 | NUR ---
PT REPOSITIONED ONTO LEFT SIDE SUPPORTED WITH PILLOW, PT DENIES PAIN OR NEEDS, VSS, LEVOPHED REMAINS OFF.
--- NOTE | 2017-05-23 04:40 | NUR ---
PT STATES " I THINK I URINATED", PT INCONTINENT OF THICK DARK BROWN STOOL, COMPLETE BATH AND LINEN CHANGE PROVIDED, PT REPOSITIONED UP AND ONTO BACK, WARM BLANKET PROVIDED FOR PT COMFORT, PT DENIES FURTHER NEEDS.
[2017-05-23 04:57] LABS: BASOPHILS 0.7 % (0-2); IMMATURE GRANULOCYTES 0.2 % (0-5); LYMPHOCYTES 16.8 % (15-50); MCH 33.7 pg (26.0-34.0); MCHC 34.5 g/dL (31.0-37.0); MEAN PLATELET VOLUME 10.7 fL (7.4-10.4); MONOCYTES 9.1 % (2-11); NEUTROPHILS 68.2 % (40-80); RDW 17.9 % (11.5-14.5); WBC 5.4 10x3/uL (4.8-10.8)
[2017-05-23 05:33] LABS: HEMATOCRIT 31.9 % (36.0-48.0); MCV 97.9 fL (80.0-100.0); PLATELET COUNT 76 10x3/uL (130-400); RBC 3.26 10x6/uL (4.00-5.40)
[2017-05-23 05:35] LABS: ANION GAP 14.9 mmol/L (8-16); CALCIUM 9.2 mg/dL (8.5-10.1); CARBON DIOXIDE 27.1 mmol/L (21.0-32.0); PHOSPHOROUS 7.5 mg/dL (2.5-4.9)
[2017-05-23 05:51] LABS: CREATININE - SERUM 5.8 mg/dL (0.6-1.3)
--- NOTE | 2017-05-23 06:00 | NUR ---
PT COMPLAINS OF BEING THIRSTY, ICE CHIPS PROVIDED, NO VISITORS IN AT THIS TIME.
--- NOTE | 2017-05-23 09:37 | NUR ---
REC'D REPORT FROM DR BAY HIS AM ON ROUNDS FER PT NEEDS TO HAVE A BM. DUCOLAX SUPPOSITORY GIVEN ORDERED PRN. PM RT GROIN SITE CDI. RATE 80, V OUTPUT 5, 100% PACED. 79BPM.
--- NOTE | 2017-05-23 10:02 | NUR ---
* Is the patient Alert and Oriented? Yes 0 * How many steps to enter\exit or inside your home? 0 0 * Preadmission Environment Photovoltaic Installer Long-Term 0 * Facility Name [facility] 0 * ADLs Partial Dependent 0 * Partial ADLs (Assistance needed) Ambulation Bathing Dressing Medication Management Toileting 0 * List name and contact numbers for known caregivers / representatives who currently or will assist patient after discharge: Spouse - Roland Hassan [phone] 0 * Additional services required to return to the preadmission environment? Yes 0 * Can the patient safely return to the preadmission environment? Yes 0 * Has this patient been hospitalized within the prior 30 days at any hospital? No Patient Name: TYREE HASSAN Admission Status: ER Accout number: [id number] Admission Date: 05-20-2017 : 1945 Admission Diagnosis: Attending: Felipe Quiñones Current LOS: 3 Planned Disposition: [facility] Primary Insurance: MEDICARE A & B Discharge Planning Comments: CM met with patient to assess dc plans/needs. 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 She states she uses a wheelchair for mobility at the facility. She plans to return to facility at discharge. Confirmed above with [facility] at facility. [facility] states they will accept patient back at discharge - they will plan to admit her to a senior care bed for physical therapy if she qualifies. CM will follow & assist as needed. Tugboat Operator: Kristy Canaels
--- NOTE | 2017-05-23 13:03 | NUR ---
NUTRITION F/U FAMILY AT BEDSIDE. PT NOW NPO FOR EGD. WILL REMAIN NPO FOR PACEMAKER PLACEMENT TOMORROW. WILL PROVIDE DIET WHEN RESUMED, MONITOR PO INTAKE. RD FOLLOWING
[2017-05-23 15:47] LABS: HEMATOCRIT 30.8 % (36.0-48.0); HEMOGLOBIN 10.5 g/dL (12-16); MCH 33.7 pg (26.0-34.0); MCHC 34.1 g/dL (31.0-37.0); MCV 98.7 fL (80.0-100.0); MEAN PLATELET VOLUME 10.8 fL (7.4-10.4); PLATELET COUNT 79 10x3/uL (130-400); RBC 3.12 10x6/uL (4.00-5.40); RDW 17.5 % (11.5-14.5); WBC 5.5 10x3/uL (4.8-10.8)
[2017-05-23 15:59] LABS: ANION GAP 15.6 mmol/L (8-16); CALCIUM 8.8 mg/dL (8.5-10.1); CARBON DIOXIDE 27.5 mmol/L (21.0-32.0); CREATININE - SERUM 6.4 mg/dL (0.6-1.3); POTASSIUM - SERUM 4.1 mmol/L (3.5-5.1)
[2017-05-23 16:01] LABS: APTT 32.4 SECONDS (22.8-39.4); INR 1.21 (0.85-1.17); PROTIME 15.2 SECONDS (11.6-15.0)
[2017-05-23 16:10] LABS: PLATELET ESTIMATE DECREASED
--- NOTE | 2017-05-23 16:54 | NUR ---
EGD IN PROGRESS, CONCENTS ON CHART. PREOP MEDS GIVEN ORDERED.
--- NOTE | 2017-05-23 19:30 | NUR ---
SHIFT ASSESSMENT COMPLETE. A&O X4 WITH NO COMPLAINTS OF PAIN OR DISCOMFORT. S1S2 AUDIBLE. HR 79, TEMP PACEMAKER TO R GROIN. DRESSING CDI. RR EVEN AND UNLABORED, CLEAR LUNG SOUNDS THROUGHOUT ALL LOBES. O2 SAT 99% 4 L/MIN VIA NC. ABD IS SOFT AND NON TENDER TO TOUCH, BS ACTIVE IN ALL QUADS. L FOREARM FISTULA, AREA IS CDI, BRUIT AND THRILL PRESENT. MUCOUS MEMBRANES ARE MOIST WITH NO LESIONS NOTED. SKIN IS WARM AND DRY. BOTH ARMS HAVE GENERALIZED BRUISING NOTED, AND HER BUTTOCKS HAS SCABS/SORES WITH SOME REDDNESS. REPOSITIONED FOR COMFORT. RIGHT IJ HAS A SCANT AMOUNT OF SEROSANGUINEOUS EXUDATE. DRESSING IS INTACT. NS INFUSING @ 10 ML/HR. SCDS REMOVED AND SKIN ASSESSED, WNL. SHE DENIES ANY NEEDS AT THIS TIME. CALL LIGHT IN REACH. BED IN LOWEST POSITION. WILL CONT WITH POC.
--- NOTE | 2017-05-23 21:00 | NUR ---
PUT PAD NEAR CVL DRESSING DUE TO THE EXUDATE. REPOSITIONED FOR COMFORT. SHE DENIES ANY REQUESTS AT THIS TIME. WILL CONT WITH POC.
--- NOTE | 2017-05-23 22:45 | NUR ---
CVL DRESSING CHANGE VIA STERILE TECHNIQUE. 2X2 GUAZE PAD APPLIED UNDERNEATH DRESSING CHANGE. REPOSITIONED FOR COMFORT, DENTURES OUT AND PUT IN WARM WATER BY THE SINK. NO FURTHER REQUESTS. WILL CONT WITH POC. CALL LIGHT IN REACH.
--- NOTE | 2017-05-23 23:10 | NUR ---
PT COMPLAINTS OF NECK PAIN A 5/10. REPOSITIONED FOR COMFORT. ADMINISTERED PRN PAIN MEDICATION. REASSESSMENT COMPLETE. NO CHANGES NOTED. S1S2 AUDIBLE, HR 79 PACEMAKER. RR EVEN AND UNLABORED, CLEAR LUNG SOUNDS THROUGHOUT ALL LOBES. BS ACTIVE X4. PARTIAL LINEN CHANGE, SMALL DARK BROWN BM. SOLO'S BUTT PASTE APPLIED TO REDDENED AREA. NO FURTHER REQUESTS. CALL LIGHT IN REACH. BED IN LOWEST POSITION. WILL CONT WITH POC.
[2017-05-24] VITALS (24 sets, daily range): BP systolic 91–126; BP diastolic 40–72
--- NOTE | 2017-05-24 01:45 | NUR ---
PT IS RESTING COMFORTABLY WITH NO SIGNS OF ACUTE DISTRESS NOTED. O2 DECREASED TO 3 L/MIN. PT TOLERATING IT WELL. NO FURTHER CHANGES. WILL CONT WITH POC.
--- NOTE | 2017-05-24 03:00 | NUR ---
REASSESSMENT COMPLETE. PARTIAL LINEN CHANGE. DARK, SEMI FORMED BM. PT WAS ABLE TO TURN HERSELF. R GROIN DRESSING CDI. SMALL AMOUNT OF BLOOD NOTED UNDERNEATH DRESSING AND ON GAUZE PAD. CVL DRESSING CHANGE VIA STERILE TECHNIQUE. THE EXUDATE THAT IS COMING FROM THE CVL IS PREVENTING THE DRESSING FROM STICKING. APPLIED 4X4 THAT COMES IN THE STERILE CHANGING KIT UNDERNEATH BANDAGE TO HELP SOAK THE EXUDATE. SHE DENIES ANY PAIN OR DISCOMFORT AT THIS TIME. REPOSITIONED FOR COMFORT. CALL LIGHT IN REACH. BED IN LOWEST POSITION. WILL CONT WITH POC.
[2017-05-24 03:51] LABS: BASOPHILS 0.4 % (0-2); HEMATOCRIT 30.9 % (36.0-48.0); HEMOGLOBIN 10.5 g/dL (12-16); IMMATURE GRANULOCYTES 0.2 % (0-5); LYMPHOCYTES 15.4 % (15-50); MCH 33.7 pg (26.0-34.0); MEAN PLATELET VOLUME 11.4 fL (7.4-10.4); MONOCYTES 11.7 % (2-11); NEUTROPHILS 65.3 % (40-80); PLATELET COUNT 82 10x3/uL (130-400); RBC 3.12 10x6/uL (4.00-5.40); RDW 16.8 % (11.5-14.5); WBC 5.3 10x3/uL (4.8-10.8)
[2017-05-24 04:04] LABS: ANION GAP 15.7 mmol/L (8-16); CALCIUM 8.2 mg/dL (8.5-10.1); CARBON DIOXIDE 25.9 mmol/L (21.0-32.0); CREATININE - SERUM 6.9 mg/dL (0.6-1.3); POTASSIUM - SERUM 3.6 mmol/L (3.5-5.1)
--- NOTE | 2017-05-24 05:40 | NUR ---
PT RESTING PEACEFULLY WITH NO SIGNS OF ACUTE DISTRESS NOTED. HR 79 BPM, RR EVEN AND UNLABORED. CALL LIGHT IN REACH. BED IN LOWEST POSITION. WILL CONT TO MONITOR.
--- NOTE | 2017-05-24 06:15 | NUR ---
ADAN HOSE AND SCDS APPLIED. CHLORHEXIDINE BATH. PARTIAL LINEN CHANGE COMPLETE. SMALL DARK BROWN BM. PUT DRAW SHEET UNDER PINK PAD FOR EASY TRANSFER TO OR TABLE. NO FURTHER REQUESTS. PT IS IN GOOD SPIRITS. VSS. WILL CONT WITH POC.
--- NOTE | 2017-05-24 06:50 | NUR ---
PRE-OP MEDS ADMINISTERED. VANC AND NS SENT WITH ANESTHESIA. LEFT WITH ANESTHESIA VIA BED. VSS. HR 79, RESP 18, EVEN AND UNLABORED.
--- NOTE | 2017-05-24 07:20 | NUR ---
REPORT RECIEVEVD FROM OFF GOING RN. DURING SHIFT CHANGE PT WAS BEING BROUGHT TO THE OR VIA BED WITH HOSPITAL STAFF. BREATHING NORMAL AND UNLABORED. 0 S/SX OF DISTRESS/DISCOMFORT.
--- NOTE | 2017-05-24 09:50 | NUR ---
PT ARRIVED VIA BED BACK FROM OR. S/P PACEMAKER PLACEMENT. PLACED ON O2 AT 2L VIA NC. DRESSING TO RIGHT SUB CLAVIAN C/D/I. VSS 97.1 HEART RATE 77, BP120/62 AND RESP 18 O2 SAT 96%. RIGHT IJ DRESSING C/D/I, PATENT. RIGHT ARM IN A SLING. LEFT RADIAL FISTULA NOTED. BRUIT ASCULTATED AND THRILL PALPATED. PRESSURE DRESSING TO RIGHT GROIN. C/D/I. PT C/O NECK PAIN. PRN ULTRAM GIVEN. BREATHING NORMAL AND UNLABORED. OTHER THAN MILD NECK PAIN, PT HAS NO OTHER NEEDS OR COMPLAINTS. CALL LIGHT IN REACH. WILL CONT POC
--- NOTE | 2017-05-24 10:30 | OP ---
PATIENT NAME: TYREE HANNAH MEDICAL RECORD: [id number] :44 LOCATION:D.[facility] D.2309 ADMISSION DATE:05/20/17 SURGEON: ANOOP MORALES MD DATE OF OPERATION: 05/21/2017 PREOPERATIVE DIAGNOSES: 1. Need for IV access. 2. Anemia of chronic renal disease. 3. Gastrointestinal bleed. 4. End-stage renal disease, on hemodialysis. 5. Gastroesophageal reflux disease. 6. Parkinson disease. POSTOPERATIVE DIAGNOSES: 1. Need for IV access. 2. Anemia of chronic renal disease. 3. Gastrointestinal bleed. 4. End-stage renal disease on hemodialysis. 5. Gastroesophageal reflux disease. 6. Parkinson disease. PROCEDURE: Right IJ double-lumen central venous line placement. SURGEON: Anoop Morales MD. REPORT OF PROCEDURE: The patient's right neck was prepped and draped in sterile fashion. Using ultrasound guidance, the right internal jugular vein was visualized, a 5 cc of 1% lidocaine was infused into the surrounding tissues. A needle was then used to cannulate the right internal jugular vein under ultrasound guidance and a guidewire was advanced with ease. Over this wire, the dilator was placed followed by the dual lumen catheter. The catheter aspirated nonpulsatile dark blood and flushed easily in both ports and this was sutured into place with 3-0 silk ties and dressed appropriately. COMPLICATIONS: None. CONDITION: Stable. ANESTHESIA: Local. BLOOD LOSS: Minimal. Procedure done at the bedside. TRANSINT:[id number] Voice Confirmation ID: [id number] DOCUMENT ID: [id number] ANOOP MORAELS MD at 1030 CC: [id number] DICTATION DATE: 05/21/171727 HIGH SCHOOL COMPUTER SCIENCE TEACHER: 05/21/172050 ADM IN [facility] [address] [place] [address]
--- NOTE | 2017-05-24 11:41 | NUR ---
PT REMAINS STABLE AT THIS TIME. DRESSING TO RIGHT SUBCLAVIAN AND RIGHT GROIN BOTH C/D/I. VERBALLY STATED THAT THE ULTRAM HELPED WITH HER PAIN LVL. NOW RESTING WITH EYES CLOSED WITH 0 S/SX OF DISTRESS/DISCOMORT. REMINDED PT TO KEEP HER LEGS STRIAGHT DUE TO TEMP PACEMAKER REMOVAL. CALL LIGHT IN REACH. WILL CONT POC
--- NOTE | 2017-05-24 15:42 | NUR ---
CURRENTLY ON DIALYSIS. VSS. BREATHING NORMALLY AND UNLABORED. DENEIS PAIN AT THIS TIME. RIGHT LEG REMAINS STRIAGHT. RIGHT GROIN AND RIGHT UPPER CHEST DRESSING C/D/I. CALL LIGHT IN REACH. WILL CONT POC
--- NOTE | 2017-05-24 16:47 | OP ---
PATIENT NAME: TYREE HANNAH MEDICAL RECORD: [id number] :44 LOCATION:D.[facility] D.2309 ADMISSION DATE:05/20/17 SURGEON: TEVIN KAYE MD DATE OF OPERATION: 05/22/2017 PROCEDURE: Temporary pacemaker placement. INDICATION: Third-degree heart block, bradycardia. PROCEDURE IN DETAIL: After informed consent was obtained and after detailed explanation of risks, benefits as well as alternative therapies, the patient proceeds with temporary pacemaker placement. The right femoral area was prepped and draped in normal sterile fashion. Right femoral vein cannulated via modified Seldinger technique with placement of 6-Danish sheath. All catheters exchanged through this sheath. FINDINGS: The temporary pacemaker was placed fluoroscopically in the RV apex. Pacing was undertaken with no complications. TRANSINT:[id number] Voice Confirmation ID: [id number] DOCUMENT ID: [id number] TEVIN KAYE MD at 1647 CC: [id number] DICTATION DATE: 05/22/17912 NUISANCE WILDLIFE TRAPPER: 05/22/17 1101 ADM IN [facility] [address] [place] [address]
--- NOTE | 2017-05-24 17:49 | NUR ---
PT REMAINS ON DIALYSIS. VSS. DRESSING TO RIGHT UPPER CHEST AND RIGHT GROIN C/D/I. 0 NEEDS AT THIS TIME. CALL LIGHT IN REACH. WILL CONT POC
--- NOTE | 2017-05-24 19:00 | NUR ---
INTRODUCED SELF. HD NURSE AT BEDSIDE HOLDING PRESSURE TO LEFT FOREARM FISTULA. REPORTS THEY REMOVED 3.7 LITERS OFF OF HER. B/P IN THE 120'S SYSTOLIC. WILL MONITOR.
--- NOTE | 2017-05-24 19:40 | NUR ---
SHIFT ASSESSMENT COMPLETED. SEE ASSESSMENT FLOWSHEET. LEFT FA FISTULA PRESSURE DRSG C/D/I SINCE HD COMPLETED AT 1900. WILL MONITOR.
--- NOTE | 2017-05-24 21:00 | NUR ---
2100 MEDS GIVEN. PULLED UP AND TURNED AND REPOSITIONED TO RT SIDE. HAD A SMEAR OF GREEN, LIQUID BM ON WHITE PAD. CLEANSED PERINEAL AREA. HAND-FED 2 JELLO CUPS. NO ACUTE DISTRESS NOTED. WILL MONITOR.
--- NOTE | 2017-05-24 22:00 | NUR ---
EYES CLOSED. NO ACUTE DISTRESS NOTED. WILL MONITOR.
--- NOTE | 2017-05-24 23:25 | NUR ---
AWOKE BRIEFLY FOR ASSESSMENT. NO CHANGES IN ASSESSMENT AT THIS TIME. WILL CONTINUE TO MONITOR.
[2017-05-25] VITALS (24 sets, daily range): BP systolic 94–170; BP diastolic 32–76
--- NOTE | 2017-05-25 01:20 | NUR ---
O2 D/C'ED. O2 SATS 98% ON ROOM AIR. NO ACUTE DISTRESS NOTED. WILL MONITOR.
--- NOTE | 2017-05-25 03:20 | NUR ---
PORTABLE CHEST XRAY COMPLETED. REASSESSMENT COMPLETED. SEE ASSESSMENT FLOWSHEET. NO NEW ACUTE CHANGES NOTED. AM LABS SPECIMEN DRAWN FROM RT IJ CVL DOUBLE LUMEN WITHOUT DIFFICULTY. FLUSHES WITH EASE. WILL MONITOR.
[2017-05-25 03:50] LABS: BASOPHILS 0.7 % (0-2); HEMATOCRIT 32.9 % (36.0-48.0); HEMOGLOBIN 11.1 g/dL (12-16); IMMATURE GRANULOCYTES 0.2 % (0-5); LYMPHOCYTES 19.6 % (15-50); MCH 33.7 pg (26.0-34.0); MCHC 33.7 g/dL (31.0-37.0); MEAN PLATELET VOLUME 10.8 fL (7.4-10.4); MONOCYTES 10.6 % (2-11); NEUTROPHILS 59.9 % (40-80); PLATELET COUNT 89 10x3/uL (130-400); RBC 3.29 10x6/uL (4.00-5.40); RDW 15.8 % (11.5-14.5); WBC 5.4 10x3/uL (4.8-10.8)
--- NOTE | 2017-05-25 03:58 | NUR ---
COUGHING AND PRODUCING GREENISH-YELLOW COLORED SPUTUM. WILL MONITOR.
[2017-05-25 04:05] LABS: ANION GAP 11.6 mmol/L (8-16); CALCIUM 8.3 mg/dL (8.5-10.1); CARBON DIOXIDE 28.8 mmol/L (21.0-32.0); CREATININE - SERUM 5.3 mg/dL (0.6-1.3); PHOSPHOROUS 6.3 mg/dL (2.5-4.9); POTASSIUM - SERUM 3.4 mmol/L (3.5-5.1)
--- NOTE | 2017-05-25 06:07 | NUR ---
REQUESTING PAIN PILL FOR "ALL OVER" PAIN. DOES NOT WANT TO MOVE/REPOSITION IN BED AT THIS TIME. RT IJ CVL DRSG WITH SEROSANGUINOUS DRAINAGE NOTED. CVL DRSG CHANGED UNDER STERILE TECHNIQUE. TOOK PAIN PILL WITHOUT SWALLOWING DIFFICULTIES. WILL MONITOR.
--- NOTE | 2017-05-25 06:48 | NUR ---
INTERROGATION OF PACEMAKER BY [employer] COMPLETED. ALL WORKING SHOULD BE. EYES CLOSED DURING PROCEDURE. WILL MONITOR.
--- NOTE | 2017-05-25 19:30 | NUR ---
RECEIVED CARE OF PT, ASSESSMENT PER FLOWSHEET. PT ALERT AND ORIENTED, HR PACED AT 80 ON CM, RT CHEST DRESSING CDI, RT ARM WITH SLING IN USE, PPP, BREATH SOUNDS CTA, BS ACTIVE X 4, RT IJ WITH NS INFUSING AT KVO-SLIGHTLY TENDER TO TOUCH, LT FOREARM FISTULA CDI-BRUIT AUSCULTATED AND THRILL PALPATED. PT POSITIONED FOR COMFORT, WATER PROVIDED PER REQUEST, DENIES ANY OTHER NEEDS AT THIS TIME, WILL MONITOR.
--- NOTE | 2017-05-25 21:38 | NUR ---
PT INCONTINENT OF SMALL AMT OF DARK BROWN STOOL. PERICARE PROVIDED, PARTIAL LINEN CHANGE DONE-SOLO'S PASTE APPLIED TO BUTTOCK AREA, AND PT POSITIONED ON SIDE FOR COMFORT SUPPORTED WITH PILLOWS.
--- NOTE | 2017-05-25 23:20 | NUR ---
REASSESSMENT PER FLOWSHEET, NO ACUTE CHANGES NOTED AT THIS TIME, REMAINS PACED AT 80 ON CM, VSS.
[2017-05-26] VITALS (14 sets, daily range): BP systolic 117–170; BP diastolic 46–109
--- NOTE | 2017-05-26 00:55 | NUR ---
PT RESTING IN BED QUIETLY, BREATHING EVEN AND UNLABORED, VSS, CONT POC.
--- NOTE | 2017-05-26 03:40 | NUR ---
REASSESSMENT PER FLOWSHEET, NO ACUTE CHANGES NOTED, REMAINS PACED ON MONITOR AT 80, VSS.
[2017-05-26 04:56] LABS: BASOPHILS 0.7 % (0-2); EOSINOPHILS 10.4 % (0-7); HEMATOCRIT 30.2 % (36.0-48.0); HEMOGLOBIN 10.1 g/dL (12-16); IMMATURE GRANULOCYTES 0.2 % (0-5); LYMPHOCYTES 18.8 % (15-50); MCH 33.4 pg (26.0-34.0); MCHC 33.4 g/dL (31.0-37.0); MEAN PLATELET VOLUME 11.3 fL (7.4-10.4); MONOCYTES 11.1 % (2-11); NEUTROPHILS 58.8 % (40-80); PLATELET COUNT 82 10x3/uL (130-400); RBC 3.02 10x6/uL (4.00-5.40); RDW 15.3 % (11.5-14.5)
[2017-05-26 04:57] LABS: ANION GAP 14.1 mmol/L (8-16); POTASSIUM - SERUM 3.1 mmol/L (3.5-5.1)
--- NOTE | 2017-05-26 06:10 | NUR ---
NO VISITORS PRESENT AT THIS TIME, VSS, PACED AT 80 ON CM.
--- NOTE | 2017-05-26 06:40 | NUR ---
DR BAY PAGED REGARDING AMMONIA LEVEL ON AM LAB. ORDERS RECEIVED.
--- NOTE | 2017-05-26 18:00 | NUR ---
TRANSFERRED TO ROOM 2131 VIA. REC'D BY NURSE.
--- NOTE | 2017-05-26 18:15 | NUR ---
PATIENT TO ROOM FROM ICU, PATIENT IS ALERT AND ORIENTED AT THIS TIME. PATIENT HAS A R IJ CVL THAT IS SL AT THIS TIME. PATIENT HAS A PACEMAKER TO RIGHT CHEST, R ARM IN SLING. PATIENT IS PACED ON MONITOR WITH A RATE OF 83. PATIENT DENIES ANY NEEDS AT THIS TIME. CPOC
--- NOTE | 2017-05-26 23:32 | NUR ---
INITIAL ROUNDS COMPETED AT 1905 HRS. PT'S BED BROKEN. PT TRANSFERRED TO ANOTHER BED. ASSESSMENT COMPELTED AT 1930 HRS. VSS. PACED RHYTHM PER CM HR 80. DRESSING TO R CHEST CLEAN, DRY AND INTACT. R ARM IN A SLING. LAVF WITH GOOD BRUIT AND THRILL. RDLIJ INTACT. SKIN RED UNDER DRESSING AND SITE OOZING SMALL AMOUNTS OF SEROUS FLUID. INFORMED BY DAY NURSE AWARE. GOOD BLOOD RETURN NOTED TO BROWN PORT. BRUISES NOTED TO BILAT ARMS. LUNGS DIMINISHED IN BASES BILAT. SCD;S AND ADAN HOSE IN PLACE. REMOVED AND SKIN INSPECTED. NO BREAKDOWN NOTED. 1/2 CM SORE NOTED TO UPPR R BUTTOCKS. PT INCONTINENT OF A LARGE AMOUNT OD STOOL. INCONTINENT CARE DONE. SOLO'S APPLIED TO SORE. PT DECLINED OFFER TO [facility] CVL SITE. PM MEDS GIVEN. PT INCONTINETN OF STOOL AT THAT TIME AND INCONTINENT CARE DONE. PT INCONTIENNT OF STOOL AT 2300 HRS. INCONTINENT CARE DONE AND BATH CURERTNLY IN PROGRESS. WILL CONTINUE TO MONITOR. SR UP X2, CALL LIGHT WITHIN REACH.
[2017-05-27] VITALS: BP 133/51
--- NOTE | 2017-05-27 00:50 | NUR ---
PT RESTING WITH EYES CLOSED. RESP EVEN AND REGULAR. SR UP X2, CALL LIGHT WITHIN REACH.
--- NOTE | 2017-05-27 02:45 | NUR ---
PT RESTING WITH EYES CLOSED. RESP EVEN AND REGULAR. PACED RHYTHM PER CM. WILL CONTINUE TO MONITOR. SR UP X2, CALL LIGHT WITHIN REACH.
[2017-05-27 04:00] VITALS: BP 110/50
--- NOTE | 2017-05-27 04:50 | NUR ---
PT INCONTINENT OF STOOLA ND URINE. INCONTINENT CARE DONE. WILL CONTINUE TO MONITOR.
[2017-05-27 05:48] LABS: BASOPHILS 0.4 % (0-2); EOSINOPHILS 6.4 % (0-7); HEMATOCRIT 31.1 % (36.0-48.0); HEMOGLOBIN 10.6 g/dL (12-16); IMMATURE GRANULOCYTES 0.2 % (0-5); LYMPHOCYTES 11.1 % (15-50); MCH 33.5 pg (26.0-34.0); MCHC 34.1 g/dL (31.0-37.0); MCV 98.4 fL (80.0-100.0); MEAN PLATELET VOLUME 10.7 fL (7.4-10.4); MONOCYTES 10.7 % (2-11); NEUTROPHILS 71.2 % (40-80); PLATELET COUNT 86 10x3/uL (130-400); RBC 3.16 10x6/uL (4.00-5.40); RDW 14.9 % (11.5-14.5); WBC 5.6 10x3/uL (4.8-10.8)
[2017-05-27 06:20] LABS: ANION GAP 17.8 mmol/L (8-16); CALCIUM 8.1 mg/dL (8.5-10.1); CARBON DIOXIDE 23.2 mmol/L (21.0-32.0); CREATININE - SERUM 7.8 mg/dL (0.6-1.3)
--- NOTE | 2017-05-27 07:19 | NUR ---
AM ROUNDS- PT IN BED WITH EYES CLOSED, AROUSES EASILY. RESP EVEN AND UNLABORED, RT IJ SL, RT CHEST PACEMAKER DRESSING CLEAN AND INTACT. BED LOW AND WHEELS LOCKED, BEDSIDE RAILS X2, CALL LIGHT IN REACH, NAD NOTED, WILL CONTINUE TO MONITOR.
[2017-05-27 08:00] VITALS: BP 147/48
--- NOTE | 2017-05-27 08:30 | NUR ---
RECEIVED CALL FROM [facility] PHARMACIST, INFORMED ME THAT DR. BAY PUT ORDERS FOR HEPARIN IN DIALYSIS AND PT IS ALERGIC TO HEPARIN ANALOGS. WANTED ME TO CHECK WITH PT TO SEE IF SHE WAS REALLY ALLERGIC TO HAPARIN. CHECKED WITH PT AND PT STATED THAT SHE IS ALLERGIC TO HEPARIN. TALKED TO DR. BAY AND INFORMED HIM THAT HE HAD ORDERED HEPARIN FOR PT AND THAT PT IS ALLERGIC TO HEPARIN. DR. BAY STATED THAT HE WAS JUST TRYING TO ORDER DIFFERENT DIALYSIS ORDERS, THAT HE DID NOT NEED THE HEPARIN. WILL NOTIFY [facility] IN PHARMACY.
--- NOTE | 2017-05-27 09:15 | NUR ---
AM MEDS GIVEN EXCEPT FOR EPOGEN SINCE NOT AVAILABLE, WILL CALL PHARMACY AND GIVE LATER. SET UP BREAKFAST TRAY FOR PT, PT DENIES ANY NEEDS AT THIS TIME. CALL LIGHT IN REACH, NAD NOTED, WILL CONTINUE TO MONITOR.
--- NOTE | 2017-05-27 10:02 | NUR ---
PT TRANSFERED TO DIALYSIS VIA BED, NAD NOTED.
--- NOTE | 2017-05-27 13:58 | NUR ---
Nutrition Follow Up: Pt was out of the room and no family present at the time of RD visit. Interview deferred. Pt is eating 51% meal avg on a renal ADA diet. Wt stable. +BM 05/27/17. Meds and labs reviewed. Rec consider liberalizing diet to encourage po intake. Will provide selective menus and honor food preferences. RD following.
--- NOTE | 2017-05-27 14:34 | NUR ---
PT TRANSFERED BACK TO ROOM 2131 VIA BED, PT DENIES ANY NEEDS AT THIS TIME. CALL LIGHT IN REACH, NAD NOTED, WILL CONTINUE TO MONITOR.
--- NOTE | 2017-05-27 14:47 | NUR ---
AMINISTERD ULTRAM FOR PAIN LEVELOF 6/10. PT IN BED, DENIES ANY OTHER NEEDS AT THIS TIME. CALL LIGHT IN REACH, NAD NOTED, WILL CONTINUE TO MONITOR.
[2017-05-27 16:02] VITALS: BP 146/63
--- NOTE | 2017-05-27 17:10 | NUR ---
ADMINSITERD MEDS ORDERED. PT DENIES ANY NEEDS AT THIS TIME. DIETARY AT BEDSIDE TO BRING DINNER TRAY. NAD NOTED, WILL CONTINUE TO MONITOR.
--- NOTE | 2017-05-27 18:16 | NUR ---
PROVIDED DRESSING CHANGE TO RT IJ DOBLE LUMEN. PT TOLERATED PROCEDURE WELL. IRRITATION NOTED TO SITE WHERE DRESSING WAS PLACED. STERILE TECHNIQUE USED FOR DRESSING CHANGE. PT DENIES ANY NEEDS AT THIS TIME, CALL LIGHT IN REACH, NAD NOTED, WILL CONTINUE TO MONITOR.
[2017-05-27 19:00] VITALS: BP 108/39
--- NOTE | 2017-05-27 20:00 | NUR ---
PT RESTING IN BED WITH NO DISTRESS. SLING IN PLACE. DRESSING C/D/I TO LEFT CHEST WALL INCISION/PACEMAKER SITE. RIGHT IJ CVL WITH DRESSING IN PLACE. CPOC.
[2017-05-28] VITALS: BP 155/35
[2017-05-28 04:00] VITALS: BP 118/37
--- NOTE | 2017-05-28 05:13 | NUR ---
BLOOD COLLECTED FROM RIGHT IJ CVL AND SENT TO LAB.
[2017-05-28 05:57] LABS: BASOPHILS 0.2 % (0-2); EOSINOPHILS 6.2 % (0-7); HEMATOCRIT 31.1 % (36.0-48.0); HEMOGLOBIN 10.5 g/dL (12-16); IMMATURE GRANULOCYTES 0.2 % (0-5); LYMPHOCYTES 15.3 % (15-50); MCH 33.8 pg (26.0-34.0); MCHC 33.8 g/dL (31.0-37.0); MEAN PLATELET VOLUME 10.9 fL (7.4-10.4); NEUTROPHILS 65.1 % (40-80); PLATELET COUNT 90 10x3/uL (130-400); RBC 3.11 10x6/uL (4.00-5.40); RDW 15.5 % (11.5-14.5); WBC 4.8 10x3/uL (4.8-10.8)
--- NOTE | 2017-05-28 06:00 | NUR ---
PT RESTING IN BED. DENIES PAIN OR DISCOMFORT. NONLABORED RESPIRATIONS. LEFT CHEST WALL DRESSING TO PACEMAKER INCISION SITE C/D/I. WEARING SLING PER ORDERS. CPOC. CALL LIGHT IN REACH.
--- NOTE | 2017-05-28 07:20 | NUR ---
PT LAYING TO LEFT SIDE SLEEPING. NO S/S DISTRESS NOTED RR EVEN AND UNLABORED. WILL CONT TO MONITOR
[2017-05-28 08:00] VITALS: BP 122/37
[2017-05-28 12:03] VITALS: BP 135/42
--- NOTE | 2017-05-28 14:53 | NUR ---
WOUND CARE CONSULT: NOTED LEFT BUTTOCK STAGE 2 PRESSURE INJURY MEASURING 1.5CM X 1.5CM X 0.1CM WOUND BED IS RED AND MOIST. THE PERIWOUND IS PALE AND SLIGHTLY MACERATED. RIGHT BUTTOCK HAS A SKIN TEAR MEASURING 1.5CM X 0.2CM. APPLIED A SMALL PIECE OF CALCIUM ALGINATE TO BOTH SITES AND COVERED WITH AND AQUACEL FOAM. PT IS BEING TURNED/REPOSITIONED Q 2 HOURS WHILE IN BED. WILL ALSO ORDER AIR OVERLAY MATTRESS. WOUND CARE WILL CONTINUE TO MONITOR.
--- NOTE | 2017-05-28 15:31 | NUR ---
FAXED AIR OVERLAY BED INFO DOWN TO [facility]
--- NOTE | 2017-05-28 15:34 | NUR ---
Dialysis Coordinator: THEE Maldonado Sat/Sat/Sat @ 12:00. DIDI HOLT.
[2017-05-28 15:54] VITALS: BP 125/29
--- NOTE | 2017-05-28 16:39 | NUR ---
PT LAYING IN BED SLEEPING NO S/S DISTRESS NOTED RR EVEN UNLABORED. ARROUSES EASILY WILL CONT TO MONITOR
[2017-05-28 19:00] VITALS: BP 156/48
--- NOTE | 2017-05-28 19:20 | NUR ---
ROUNDING NOTE: PT IS ALERT AND AWAKE UPON ENTERING ROOM, PT REQUESTING TO USE BEDPAN. ATTEMPTED TO DO THIS BY MYSELF, BUT PT UNABLE TO TURN IN BED WITH ASSIST X1, SO I WENT TO GET ANOTHER NURSE FOR HELP. PT FELT LIKE SHE HAD TO HAVE A BM, BUT ONLY VOIDED SMALL AMOUNT. PT'S BUTTOCKS WITH INTACT MEPILEX DRESSING IN PLACE. CLEO AREA RED AND EXCORIATED, CLEANED AND DRIED WELL. PT HAS RIGHT IJ SALINE LOC. ON TELE, SR/PACER, PLACED 05/24. STILL HAS SLING ON RIGHT ARM. PT IS CHRONIC HD, MWF WITH LEFT WRIST FISTULA, LEFT ARM RESERVE, POSITIVE THRILL, POSITIVE BRUIT. PT DENIES ANY OTHER NEEDS. WILL MONITOR.
[2017-05-29 04:00] VITALS: BP 108/30
[2017-05-29 06:06] LABS: CALCIUM 7.4 mg/dL (8.5-10.1); PHOSPHOROUS 4.9 mg/dL (2.5-4.9)
--- NOTE | 2017-05-29 06:15 | NUR ---
WELL I PIERO PT'S AM LABS AT 0520, I NOTICED THAT PT'S RIGHT IJ SALINE LOC WAS LEAKING THROUGH THE DRESSIN AND ONTO HER BED AND GOWN. PT HAS VERY THIN SKIN AND NUEMROUS BRUISES ON HER NECK. AFTER REMOVING THE FIRST DSG, PT'S SKIN IS NOTED TO BE VERY RED, SENSITIVE AND EXCORIATED FROM THE TAPE. DRESSING COMPLETED, BUT PT DID NOT TOLEARTE WELL. HOWEVER, PT STATES THAT, "THIS IS HOW IT ALWAYS IS FOR ME." IJ SALINE LOC PATENT AND FLUSHING WELL.
[2017-05-29 06:30] LABS: CREATININE - SERUM 5.7 mg/dL (0.6-1.3)
[2017-05-29 06:43] LABS: BASOPHILS 0.4 % (0-2); EOSINOPHILS 3.3 % (0-7); HEMATOCRIT 26.6 % (36.0-48.0); HEMOGLOBIN 8.9 g/dL (12-16); IMMATURE GRANULOCYTES 0.2 % (0-5); LYMPHOCYTES 11.6 % (15-50); MCH 33.5 pg (26.0-34.0); MCHC 33.5 g/dL (31.0-37.0); MEAN PLATELET VOLUME 11.5 fL (7.4-10.4); MONOCYTES 9.8 % (2-11); NEUTROPHILS 74.7 % (40-80); PLATELET COUNT 95 10x3/uL (130-400); RBC 2.66 10x6/uL (4.00-5.40); RDW 15.4 % (11.5-14.5); WBC 5.4 10x3/uL (4.8-10.8)
--- NOTE | 2017-05-29 07:16 | NUR ---
UNABLE TO DO DAILY WEIGHT B/C PT IS NONAMBULATORY AND THE BEDSCALE IS NOT WORKING.
--- NOTE | 2017-05-29 07:17 | NUR ---
pt laying to left side sleeping no s/s distress noted rr even and unlabored will cont to monitor
[2017-05-29 08:16] VITALS: BP 116/24
[2017-05-29 16:00] VITALS: BP 155/72
--- NOTE | 2017-05-29 19:05 | NUR ---
ROUNDING NOTE: PT IS ALERT AND AWAKE UPON ENTERING ROOM. PT STATES THAT SHE IS HAPPY THAT SHE MAY BE GOING HOME TOMORROW. DENIES ANY NEEDS AT THIS TIME. WILL CONT TO MONITOR.
[2017-05-29 20:00] VITALS: BP 114/93
--- NOTE | 2017-05-29 23:00 | NUR ---
PT'S VS: T 100.0, BP 114/93, HR 79, RR 20, O2 SAT 94% ON RA. PT'S COLOR IS OFF, SHE IS PALE AND LOOKS VERY DRAINED. PT STATES THAT SHE DOESN'T FEEL WELL. SHE IS NOT ABLE TO VERBALIZE EXACTLY WHAT IS WRONG. DENIES CP, SOB, DIZZINESS, ABD PAIN, & NAUSEA. BUT SHE DOES NOT REPORT THAT HER ENTIRE NECK FROM HER RIGHT IJ EXTENDING DOWN TO HER RIGHT CHEST IS SORE TO TOUCH. SHE FEELS LIKE IT IS SWOLLEN AND SHE IS HAVING DIFFICULTY SWALLOWING WELL. ON EXAM, THE SITE APPEARS TO BE LEAKING, IT IS RED, AND IT IS WARM TO TOUCH. STILL GETTING BLOOD RETURN AND IT IS FLUSHING, BUT PT STATES THAT IT IS VERY UNCOMFORTABLE WHEN I FLUSH IT. THE CENTRAL LINE DRESSING WAS JUST CHANGED YESTERDAY D/T LEAKING AND IT IS STILL LEAKING. CONCERNS FOR POSSIBLE CENTRAL LINE INFECTION. PATIENT EXAMINED WITH ANOTHER RN, CARON WHO AGREES WITH MY CONCERNS. CALL PLACED TO RENAL MANAGER [employer] MANAGER ANABELLE BHATIA. RECEIVED CALL BACK AND ORDERS FOR TYLENOL PRN, 2 SETS OF BLOOD CULTURES, PULL CVL, START PERIPHERAL LINE, THEN GIVE 1 TIME DOSE OF IV VANCO AFTER BLOOD CULTURES ARE DRAWN. ICE APPLIED TO NECK FOR PATIENT COMFORT. WILL CONTINUE TO MONITOR PATIENT.
--- NOTE | 2017-05-30 01:00 | NUR ---
TYLENOL GIVEN PER ORDER, 2 SETS OF BLOOD CULTURES OBTAINED. 1 SET FROM CVL, 1 SET FROM RIGHT ARM. CVL LINE PULLED PER ORDER. TIP SENT TO THE LAB PER ORDER. PERIPHERAL IV 20G RIGHT WRIST STARTED, 1GM IV VANCO X1 GIVEN PER ORDER AFTER BLOOD CX WERE OBTAINED. PT FEELING BETTER AFTER RECEIVING TYLENOL AND ICE APPLIED TO NECK AND CHEST. WILL CONT TO MONITOR.
[2017-05-30 04:00] VITALS: BP 105/43
[2017-05-30 05:58] LABS: BASOPHILS 0.4 % (0-2); EOSINOPHILS 3.5 % (0-7); HEMATOCRIT 29.2 % (36.0-48.0); HEMOGLOBIN 9.6 g/dL (12-16); IMMATURE GRANULOCYTES 0.2 % (0-5); MCH 33.2 pg (26.0-34.0); MCHC 32.9 g/dL (31.0-37.0); MEAN PLATELET VOLUME 10.9 fL (7.4-10.4); MONOCYTES 16.9 % (2-11); PLATELET COUNT 91 10x3/uL (130-400); RBC 2.89 10x6/uL (4.00-5.40); RDW 15.5 % (11.5-14.5); WBC 5.4 10x3/uL (4.8-10.8)
[2017-05-30 06:12] LABS: ANION GAP 11.6 mmol/L (8-16); CALCIUM 8.1 mg/dL (8.5-10.1); CARBON DIOXIDE 26.8 mmol/L (21.0-32.0); CREATININE - SERUM 5.2 mg/dL (0.6-1.3); PHOSPHOROUS 3.8 mg/dL (2.5-4.9); POTASSIUM - SERUM 3.4 mmol/L (3.5-5.1)
--- NOTE | 2017-05-30 07:38 | NUR ---
PT LAYING TO LEFT SIDE SLEEPING NO S/S DISTRESS NOTED RR EVENA ND UNLABORED WILL CONT TO MONITOR
[2017-05-30 08:00] VITALS: BP 96/46
[2017-05-30 12:00] VITALS: BP 136/71
--- NOTE | 2017-05-30 13:43 | NUR ---
Nutrition Follow Up: Pt was asleep at the time of RD visit. Interview deferred. Pt is eating 84% meal avg on a renal ADA diet. Wt stable. +BM 05/27/17. Meds and labs reviewed. Rec continue current diet. RD following.
[2017-05-30 16:00] VITALS: BP 162/65
--- NOTE | 2017-05-30 18:29 | NUR ---
PT SITTING UP IN BED SLEEPING NO S/S DISTRESS NOTED RR EVEN AND UNLABORED
--- NOTE | 2017-05-30 19:50 | NUR ---
PT IN BED RESTING QUEITLY. STATED SHE WAS COLD AND WAS GIVEN ANOTHER BLANKET. DENIES ANY NEEDS AT THIS TIME.
[2017-05-31 04:00] VITALS: BP 82/34
--- NOTE | 2017-05-31 04:45 | NUR ---
ASSISTED PT TO USE BEDPAN. BM LIGHT BROWN AND FORMED. SMALL AMOUNT CLEAR YELLOW URINE. DENIES ANY FURTHER NEEDS AT THIS TIME. BED IN LOW POSITION, CALL LIGHT WITHIN REACH.
--- NOTE | 2017-05-31 07:12 | NUR ---
AM ROUNDS- PT IN BED, WITH EYES CLOSED, EASILY AROUSES. RESP EVEN AND UNLABORED. RT WRIST IV SL. BED LOW AND WHEELS LOCKED, BEDSIDE RAILS X2, CALL LIGHT IN REACH, NAD NOTED, WILL CONTINUE TO MONITOR.
[2017-05-31 08:00] VITALS: BP 145/49
[2017-05-31 08:18] LABS: BASOPHILS 0.2 % (0-2); EOSINOPHILS 4.1 % (0-7); HEMATOCRIT 30.2 % (36.0-48.0); HEMOGLOBIN 10.1 g/dL (12-16); IMMATURE GRANULOCYTES 0.3 % (0-5); LYMPHOCYTES 10.4 % (15-50); MCH 33.3 pg (26.0-34.0); MCHC 33.4 g/dL (31.0-37.0); MCV 99.7 fL (80.0-100.0); MEAN PLATELET VOLUME 11.1 fL (7.4-10.4); MONOCYTES 12.8 % (2-11); NEUTROPHILS 72.2 % (40-80); PLATELET COUNT 94 10x3/uL (130-400); RBC 3.03 10x6/uL (4.00-5.40); RDW 14.9 % (11.5-14.5); WBC 6.6 10x3/uL (4.8-10.8)
--- NOTE | 2017-05-31 08:26 | NUR ---
AM MEDS GIVEN AT THIS TIME. PT IN BED, DENIES ANY NEEDS, CALL LIGHT IN REACH,NAD NOTED, WILL CONTINUE TO MONITOR.
[2017-05-31 08:53] LABS: ANION GAP 13.3 mmol/L (8-16); CALCIUM 8.8 mg/dL (8.5-10.1); CARBON DIOXIDE 26.1 mmol/L (21.0-32.0); POTASSIUM - SERUM 3.4 mmol/L (3.5-5.1)
[2017-05-31 08:55] LABS: CREATININE - SERUM 6.7 mg/dL (0.6-1.3); PHOSPHOROUS 4.9 mg/dL (2.5-4.9)
--- NOTE | 2017-05-31 11:12 | NUR ---
SPOKE WITH JESUS MANUEL SANFORD WITH RENAL. DISCUSSED POSSIBILITY OF DISCHARGING THE PATIENT TODAY SINCE DR BAY'S NOTES SAID SHE COULD GO TO REHAB YESTERDAY. PATIENT IS AGREEABLE TO REHAB AT THE [facility]. SANDRA AT [facility] ([phone]) SAID THAT THEY WOULD RUN HER DAYS AND BE GLAD TO TAKE HER IN A REHAB BED, BUT IF SHE DID NOT HAVE DAYS, THEY COULD DO RESTORATIVE WITH HER. EXPLAINED THAT SHE HAD TO DIALIZE FIRST AND THAT IT WOULD BE A LATE PICK-UP. SHE ORIGINALLY STATED THAT WOULD NOT BE A PROBLEM. THIS INFORMATION WAS RELAYED TO JESUS MANUEL DUNAWAY. Appended by Mirian Savage on 05/31/2017 11:12 CDT: SPOKE WITH JAYSON IN DIALYSIS WHO ORIGINALLY SAID THAT SHE COULDN'T GIVE A FOR SURE TIME, BUT IN HER ESTIMATION, THE MACHINES WOULD BE READY FOR THE PATIENT AROUND 1400 AND SHE IS A 3 HOURS RUN. WHICH MENT PICK-UP COULD BE AFTER 5ISH. THEN SHE CALLED BACK AND STATED SHE WAS STRINGING A THIRD MACHINE AND WOULD BE ABLE TO CALL FOR HER WHEN SHE CALLS FOR THE OTHER PATIENT TO BE PICKED UP IN 45 MINUTES AND SHOULD HAVE HER GOING BY 1200. THIS INFORMATION WAS RELAYED TO THE [facility] BY ADALID ANGLIN WHO WAS CALLING [facility] IN REGARDS TO ANOTHER PATIENT ALREADY.
[2017-05-31] MEDS ORDERED: CHRONULAC30 ML PO (11:53)
[2017-05-31] MEDS ORDERED: COREG 3.1253.125 MG PO (11:53)
[2017-05-31 12:00] VITALS: BP 155/44
--- NOTE | 2017-05-31 12:16 | NUR ---
PT TRANSFERED TO DIALYSIS VIA BED, NAD NOTED.
--- NOTE | 2017-05-31 12:42 | NUR ---
Patient Name: TYREE HANNAH Encounter No: [id number] : 1945 Primary Insurance: MEDICARE A & B Anticipated DC Date: 05-31-2017 Planned Disposition: Nursing Facility [facility] Cert External Planned Provider: [facility] MEDICA[facility] DCP follow-up note: CM RECEIVED DISCHARGE ORDER, CALLED AND SPOKE TO FREDY WHO REPORTS THEY CAN ACCEPT PT TODAY. CM FAXED DISCHARGE INFORMATION TO [facility],[phone]. NURSE REPORT TO BE CALLED TO [facility], ; [facility] TO ARRANGE VAN DISTANCE EDUCATION TEACHER FOR AFTER 4PM TODAY. Still Operator Helper: Roberto Moncada
--- NOTE | 2017-05-31 15:20 | NUR ---
CALLED [facility] AND REPORT GIVEN TO JJ MONACO WHO WILL BE TAKING CARE OF PT. PT STILL IN DIALYSIS AT THIS TIME.
--- NOTE | 2017-05-31 16:20 | NUR ---
PROVIDED VERBAL AND WRITTEN DISCHARGE TEACHING TO PT. PT VERBALIZED UNDERSTANDING REGARING TEACHING. D/C RT WRIST IV, TIP INTACT. REMOVED HEART MONITOR AND TOOK IT TO [employer] DRIVER. CORRECTION STAFF HERE TO EXECUTIVE STEWARD PT. PT LEFT UNIT VIA WHEELCHAIR, NAD NOTED.
--- NOTE | 2017-06-04 11:37 | OP ---
PATIENT NAME: TYREE HANNAH MEDICAL RECORD: [id number] :43 LOCATION:D. D.2131 ADMISSION DATE:05/20/17 SURGEON: ABDELRAHMAN SUTTON MD DATE OF OPERATION: 05/24/2017 SURGEON: Abdelrahman Sutton MD ANESTHESIA: General by Dr. Dewey. OPERATION PERFORMED: Insertion of dual-chamber pacing system. PREOPERATIVE DIAGNOSIS: Complete heart block. POSTOPERATIVE DIAGNOSIS: Complete heart block. INDICATION FOR OPERATION: Complete heart block. FINDINGS OF THE OPERATION: Complete heart block. Medtronic pacemaker Adapta ADDR01, serial number [id number]. ATRIAL LEAD: Medtronic model number 5568-45, serial number [id number]. VENTRICULAR LEAD: Medtronic model number 4092-52, serial number [id number]. ESTIMATED BLOOD LOSS: Less than 5 cc. DESCRIPTION OF PROCEDURE: After informed consent and adequate preoperative medication evaluation, the patient was brought to the operating room, placed on the table in the supine position. After induction of general anesthesia and application of appropriate monitoring devices, the right chest was prepped and draped in a sterile field, utilizing Betadine scrub, alcohol, and Betadine solution. A Betadine-impregnated drape was also used, 1% lidocaine was infiltrated in the right subclavicular space. Incision made and dissection carried down to the fascia. Hemostasis maintained with electrocautery. A pacemaker pocket was formed. Subclavian vein was cannulated with the introducers, leads placed in the heart. The above electrophysiologic study was done. Leads were secured. The leads were then connected to the pacemaker. Pacemaker placed in the pocket. Pacemaker fired, captured and sensed appropriately. Pocket was irrigated. Instrument count and sponge count were correct times 2. Pocket was closed in layers utilizing 3-0 Vicryl on deep subcutaneous tissue, 5-0 subcuticular Monocryl on the skin. Sterile dressing was applied. The temporary pulse generator lead was removed under fluoroscopic guidance. Sterile dressing was applied. The patient tolerated the procedure well and transferred back to the ICU in satisfactory condition. TRANSINT:[id number] Voice Confirmation ID: [id number] DOCUMENT ID: [id number] OPERATIVE REPORT [id number] CAMDENTYREE ABDELRAHMAN FIELD MD at 1137 CC: [id number] DICTATION DATE: 05/24/17 1038 PUBLIC EMPLOYMENT MEDIATOR: 05/24/17 1259 DIS IN 05/31/17 [facility] [address] [place] [id number]
== END 2017-05-31 16:25 | DRG 242 ==
LOC: D.ER 15:21 → D.SDCHOLD 16:50 → OBSVTIME 16:50 → D.M2 20:29 → D.ICU 20:29 → D.SDCHOLD 20:29 → D.M2 20:30 → D.ICU 05-22 08:59 → D.M2 05-26 18:09
PROVIDERS: Emergency Medicine; Internal Medicine Cardiovascular Disease; Internal Medicine Interventional Cardiology; ADMIT Internal Medicine Nephrology
PROC: 02H633Z Insertion of Infusion Device into Right Atrium, Percutaneous Approach (ICD-10-PCS; 2017-05-21)
PROC: B244ZZZ Ultrasonography of Right Heart (ICD-10-PCS; 2017-05-21)
PROC: 5A1223Z Performance of Cardiac Pacing, Continuous (ICD-10-PCS; principal; 2017-05-22 08:54)
PROC: 0DJ08ZZ Inspection of Upper Intestinal Tract, Via Natural or Artificial Opening Endoscopic (ICD-10-PCS; 2017-05-23)
PROC: 0JH606Z Insertion of Pacemaker, Dual Chamber into Chest Subcutaneous Tissue and Fascia, Open Approach (ICD-10-PCS; 2017-05-24)
PROC: 02H63JZ Insertion of Pacemaker Lead into Right Atrium, Percutaneous Approach (ICD-10-PCS; 2017-05-24)
PROC: 02HK3JZ Insertion of Pacemaker Lead into Right Ventricle, Percutaneous Approach (ICD-10-PCS; 2017-05-24)
DX: I44.2 Atrioventricular block, complete (principal); K31.811 Angiodysplasia of stomach and duodenum with bleeding; N18.6 End stage renal disease; I12.0 Hypertensive chronic kidney disease with stage 5 chronic kidney disease or end stage renal disease; K76.6 Portal hypertension; I85.00 Esophageal varices without bleeding; D63.1 Anemia in chronic kidney disease; Z99.2 Dependence on renal dialysis; G20 Parkinson's disease; K31.89 Other diseases of stomach and duodenum; K25.9 Gastric ulcer, unspecified as acute or chronic, without hemorrhage or perforation; K64.8 Other hemorrhoids; I25.10 Atherosclerotic heart disease of native coronary artery without angina pectoris; J44.9 Chronic obstructive pulmonary disease, unspecified; Z95.2 Presence of prosthetic heart valve; F32.9 Major depressive disorder, single episode, unspecified; E83.39 Other disorders of phosphorus metabolism; K21.0 Gastro-esophageal reflux disease with esophagitis; K76.9 Liver disease, unspecified

== ENCOUNTER 2017-07-19 08:30 | Outpatient (CLI) | payer MEDICARE ==
[2017-05-21 09:37] VITALS: BMI 28.1
[~2017-07-19 08:30] MED LIST changes: +COREG 3.1253.125 MG PO; +EMLA CREAM 30 G30 G1 TOPICAL
== END 2017-07-19 23:59 | disposition home or self-care (01) ==
LOC: D.RAD 08:30
DX: R13.10 Dysphagia, unspecified (principal)

== ENCOUNTER 2017-08-03 18:30 | Observation (INO) | payer MEDICARE ==
[~2017-08-03] VITALS: Ht 165.1 cm; Wt 71.2 kg
[2017-08-03 21:02] VITALS: BP 140/59
[2017-08-03 22:01] LABS: HEMATOCRIT 34.7 % (36.0-48.0); HEMOGLOBIN 11.2 g/dL (12-16)
--- NOTE | 2017-08-03 23:55 | NUR ---
PATIENT NEW ADMIT FROM [facility]. REPORTED HAVING TARRY STOOLS AND STOOL SAMPLE CAME BACK POSITIVE FOR OCCULT BLOOD. H AND H ARE 11.1 AND 34.9. MAY DISCHARGE TOMORROW. PATIENT IS RESTING AT THIS TIME, HOWEVER SHE IS COUGHING , AND REPORTS THAT SHE COUGHS LIKE THAT ALL THE TIME AT HOME WELL. SHE IS CURRENTLY LIVING IN THE [facility]. BED LOW, CALL LIGHT IN REACH.
[2017-08-04 00:19] VITALS: BP 126/65
[2017-08-04 02:45] VITALS: Ht 165.1 cm; Wt 71.2 kg
[2017-08-04 03:33] LABS: BASOPHILS 0.8 % (0-2); EOSINOPHILS 3.4 % (0-7); HEMATOCRIT 34.3 % (36.0-48.0); HEMOGLOBIN 10.9 g/dL (12-16); IMMATURE GRANULOCYTES 0.2 % (0-5); LYMPHOCYTES 13.7 % (15-50); MCH 32.6 pg (26.0-34.0); MCHC 31.8 g/dL (31.0-37.0); MCV 102.7 fL (80.0-100.0); MEAN PLATELET VOLUME 11.6 fL (7.4-10.4); MONOCYTES 7.3 % (2-11); NEUTROPHILS 74.6 % (40-80); PLATELET COUNT 106 10x3/uL (130-400); RBC 3.34 10x6/uL (4.00-5.40); RDW 14.9 % (11.5-14.5); WBC 6.2 10x3/uL (4.8-10.8)
[2017-08-04 03:42] LABS: ANION GAP 24.2 mmol/L (8-16); CARBON DIOXIDE 21.3 mmol/L (21.0-32.0); CREATININE - SERUM 7.3 mg/dL (0.6-1.3); POTASSIUM - SERUM 4.5 mmol/L (3.5-5.1)
[2017-08-04 05:16] VITALS: BP 112/50
--- NOTE | 2017-08-04 07:45 | NUR ---
AM ROUNDS COMPLETED. INTRODUCED MYSELF TO PT PRIMARY RN FOR TODAYS SHIFT. PT A&O SITTING UP IN BED RESTING QUIETLY. R.AC PIV WITH PROTONIX DRIP @10ML/HR AND NS @50ML/HR INFUSING, DRSG CDI AND SWAB CAPS IN USE. PT STATES SHE IS HOPING TO GO BACK TO [place] TODAY AND STATES SHE FEELS GOOD AND HAD ONE DARK TARRY STOOL OVER NIGHT. WILL CHECK LABS/CHART/ORDERS AND CPOC. CL IN REACH, BED IN LOWEST, SIDE RAILS X2.
[2017-08-04 09:36] LABS: HEMATOCRIT 30.8 % (36.0-48.0)
[2017-08-04 11:42] VITALS: BP 105/47
--- NOTE | 2017-08-04 11:42 | NUR ---
PTS HGB REMAINS STABLE WILL DISCHARGE BACK TO [facility] AND CONTINUE PREVIOUS MEDICATIONS. CALLED REPORT TO JAZZMINE FROM THEIR FACILITY AND WILL CALL [facility] FOR TRANSPORTATION. ASSISTED PT GETTING DRESSED AND BELONGINGS COLLECTED. D/C PTS R.FA PIV WITH CATHETER TIP FULLY INTACT. WILL GET DISHCARGE PAPERS AND DO TEACHING. PT VOICED THANKS AND UNDERSTANDING AND WILL AWAIT DISCHARGE.
--- NOTE | 2017-08-04 12:32 | NUR ---
PATIENT HAD BEEN TRANSFERED TO [facility] FROM [facility] FOR DX GI BLEED/ ESRD. SHE IS A RESIDENT AT [facility] IN [place], [place]. PCP DR LANCE. ADMITTED TO OBS W/ SERIAL H/H, CBC AND BMP AM LABS, PRONTONIX DRIP AND NS IVFS AT 50 CC/HR. SEEN THIS AM BY RENAL. STATES PATIENT IS STABLE FOR TRANSFER BACK TO FACILITY. PLAN FOR GI F/U OUTPATIENT. 0950 TC TO FACILITY AND SPOKE WITH PRIMARY NURSE, JAZZMINE. FAXED D/C SUMMARY, LABS AND DISCHARGE MED LIST PER REQUEST. PATIENT WILL BE RETURNING TO [facility]TC BED PER JAZZMINE. SPOKE WITH PRIMARY NURSE, KWADWO. PROVIDED PACKET THAT HAD BEEN FAXED. KWADWO CALLED REPORT. [place] DOES NOT HAVE TRANSPORTATION TODAY. THEY ADVISED TO CALL [facility] FOR TRANSPORTATION BACK TO FACILITY. [place] IS CONTRACTED W/ [facility] FOR TRANSPORT. PCS SIGNED. FACE SHEET PROVIDED. NURSE TO NOTIFY FAMILY OF DISCHARGE.
--- NOTE | 2017-08-04 14:52 | NUR ---
DISCHARGE TEACHING PROVIDED AND PAPERS SIGNED. AMBULANCE SERVICE IN ROUTE. PT DENIES ANY CURRENT PAIN QUESTIONS OR NEEDS. CL IN REACH. WILL CTM UNTIL SHE LEAVES.
--- NOTE | 2017-08-04 15:43 | NUR ---
AMBULANCE SERVICE HERE AND TAKING PT NOW. NO FURTHER NEEDS.
== END 2017-08-04 15:53 ==
LOC: D.M2 18:30 → OBSVTIME 20:24 → D.M2 08-04 15:53
PROVIDERS: ADMIT Internal Medicine
DX: K92.1 Melena (principal); I12.0 Hypertensive chronic kidney disease with stage 5 chronic kidney disease or end stage renal disease; N18.6 End stage renal disease; Z99.2 Dependence on renal dialysis; D63.1 Anemia in chronic kidney disease

== ENCOUNTER 2017-09-16 22:40 | Emergency (ER) | payer MEDICARE | END 2017-09-17 01:52 | disposition home or self-care (01) | LOC: D.ER 22:40 | DX: S40.011A Contusion of right shoulder, initial encounter (principal); S70.01XA Contusion of right hip, initial encounter; S80.01XA Contusion of right knee, initial encounter; W19.XXXA Unspecified fall, initial encounter; Y93.89 Activity, other specified; Y92.019 Unspecified place in single-family (private) house as the place of occurrence of the external cause; S82.61XA Displaced fracture of lateral malleolus of right fibula, initial encounter for closed fracture; N18.9 Chronic kidney disease, unspecified; J44.9 Chronic obstructive pulmonary disease, unspecified; E11.9 Type 2 diabetes mellitus without complications; K21.9 Gastro-esophageal reflux disease without esophagitis ==

== ENCOUNTER 2018-02-22 19:31 | Emergency (ER) | payer MEDICARE ==
[~2018-02-22] VITALS: Ht 165.1 cm; Wt 75.9 kg
[2018-02-22 19:33] VITALS: Ht 165.1 cm; Wt 75.9 kg
[2018-02-22] MEDS ORDERED: MIDODRINE HCL10 MG PO (19:36)
[2018-02-22] MEDS ORDERED: SENSIPAR30 MG (19:37)
[2018-02-22] MEDS ORDERED: DULCOLAX5 MG PO (19:37)
[2018-02-22] MEDS ORDERED: PROZAC10 MG PO (19:38)
[2018-02-22] MEDS ORDERED: MIRALAX17 GM PO (19:38)
[2018-02-22] MEDS ORDERED: RENA-VITE TABL0.8 MG PO (19:38)
[2018-02-22] MEDS ORDERED: SINEMET 25-1001 EACH PO (19:39)
[2018-02-22] MEDS ORDERED: PEPCID20 MG PO (19:40)
[2018-02-22] MEDS ORDERED: PROAIR HFA8.5 GM INH (19:40)
[2018-02-22 20:48] LABS: BASOPHILS 0.7 % (0-2); EOSINOPHILS 3.2 % (0-7); HEMATOCRIT 35.7 % (36.0-48.0); HEMOGLOBIN 11.5 g/dL (12-16); IMMATURE GRANULOCYTES 0.2 % (0-5); LYMPHOCYTES 15.6 % (15-50); MCH 34.6 pg (26.0-34.0); MCHC 32.2 g/dL (31.0-37.0); MCV 107.5 fL (80.0-100.0); MONOCYTES 14.2 % (2-11); NEUTROPHILS 66.1 % (40-80); RBC 3.32 10x6/uL (4.00-5.40); RDW 16.1 % (11.5-14.5); WBC 5.7 10x3/uL (4.8-10.8)
[2018-02-22 20:49] LABS: PLATELET COUNT 82 10x3/uL (130-400)
[2018-02-22 21:01] LABS: ALBUMIN 3.1 g/dL (3.4-5.0); ANION GAP 17.1 mmol/L (8-16); BILIRUBIN - TOTAL 1.13 mg/dL (0.2-1.3); CALCIUM 7.7 mg/dL (8.5-10.1); CARBON DIOXIDE 27.6 mmol/L (21.0-32.0); CREATININE - SERUM 6.6 mg/dL (0.6-1.3); POTASSIUM - SERUM 4.7 mmol/L (3.5-5.1); PROTEIN - SERUM 8.1 g/dL (6.4-8.2)
[2018-02-22 21:06] LABS: PLATELET ESTIMATE DECREASED
[2018-02-23 00:22] VITALS: BP 99/61
== END 2018-02-23 00:22 | disposition home or self-care (01) ==
LOC: D.ER 19:31
PROVIDERS: Family Medicine
DX: E11.9 Type 2 diabetes mellitus without complications (principal); I12.0 Hypertensive chronic kidney disease with stage 5 chronic kidney disease or end stage renal disease; N18.6 End stage renal disease; Z99.2 Dependence on renal dialysis; D69.6 Thrombocytopenia, unspecified; M79.672 Pain in left foot; M79.671 Pain in right foot; I10 Essential (primary) hypertension

== ENCOUNTER → 2018-02-27 10:59 | Outpatient (CLI) | payer MEDICARE ==
[2018-02-22 19:33] VITALS: BMI 27.8
[~2018-02-27 10:59] MED LIST changes: +DULCOLAX5 MG PO; +FERRIC CITRATE210 MG PO; +GABAPENTIN100 MG PO; +HEMORRHOIDAL OI57 GM TP; +MIDODRINE HCL10 MG PO; +PEPCID20 MG PO; +SENSIPAR30 MG; +SENSIPAR30 MG PO
== END | disposition home or self-care (01) ==
LOC: D.US 10:59
DX: M79.604 Pain in right leg (principal); R60.9 Edema, unspecified; L53.9 Erythematous condition, unspecified

== ENCOUNTER → 2018-03-18 14:18 | Outpatient (CLI) | payer MEDICARE ==
[2018-02-22 19:33] VITALS: BMI 27.8
== END | disposition home or self-care (01) ==
LOC: D.CT 11:30
DX: R60.9 Edema, unspecified (principal); I73.9 Peripheral vascular disease, unspecified

== ENCOUNTER 2018-03-19 10:08 | Inpatient (IN) | payer MEDICARE ==
[~2018-03-19] VITALS: Ht 165.1 cm; Wt 92.7 kg
--- NOTE | ~2018-03-19 | OP ---
PATIENT NAME: TYREE HANNAH MEDICAL RECORD: [id number] :[birth year] LOCATION:[facility] D.2313 ADMISSION DATE:03/19/18 SURGEON: TAM ROBERTS MD DATE OF OPERATION: 03/21/2018 PREOPERATIVE DIAGNOSES: 1. End-stage renal disease. 2. Lack of adequate peripheral access. 3. Hypotensive on dopamine. POSTOPERATIVE DIAGNOSES: 1. End-stage renal disease. 2. Lack of adequate peripheral access. 3. Hypotensive on dopamine. PROCEDURES: 1. Failed attempts at right neck central line placement. 2. Placement of right groin 20 cm central venous catheter. SURGEON: Tam Roberts MD BLOOD LOSS: 25 cc. ANESTHESIA: Local. OPERATIVE COURSE: The risks, possible complications and alternatives to procedure were explained. A consent form was signed. The entire procedure was performed in the presence of a female nurse. I interrogated the right neck with the ultrasound. It revealed there was an enlarged external jugular vein as well as an internal jugular vein that was compressible. The right neck and right upper chest were sterilely prepped and draped. Local anesthetic was used to infiltrate the skin and subcutaneous tissues at the base of the right neck. I was unable to percutaneously access the internal jugular vein. I was able to percutaneously access the external jugular vein; however, I could not get the wire to thread. I then attempted a supraclavicular approach to the subclavian vein and this was not fruitful. Attempts of the right neck were then halted. We brought on a new central venous catheter kit. The patient was positioned in reverse Trendelenburg position. The right groin was sterilely prepped and draped. Local anesthetic was used to infiltrate the skin and subcutaneous tissue of the right groin. Right femoral vein was percutaneously accessed in an antegrade fashion. A guidewire passed easily. A small skin esdras was accomplished. A vessel dilator was used to dilate a subcutaneous tract. A 20 cm triple lumen central venous catheter was inserted to the hub. It flushed easily and aspirated dark, nonpulsatile blood. A central venous line was then sutured in place x3. A sterile dressing was applied. I will obtain a chest x-ray to rule out pneumothorax. TRANSINT:[id number] Voice Confirmation ID: [id number] DOCUMENT ID: [id number] OPERATIVE REPORT [id number] TYREE HANNAH ROBERT MD at 1425 CC: [id number] DICTATION DATE: 03/21/181932 ADJUSTER LEADER: 03/22/18 0121 DIS IN 03/24/[address] [place] [id number] [facility], [id number]
--- NOTE | ~2018-03-19 | CN ---
PATIENT NAME:TYREE HASSAN MEDICAL RECORD: [id number] : 43 LOCATION:[facility].2313 ADMIT DATE: 03/19/18 ACCOUNT: [id number] CONSULTING PHYSICIAN: JOE DESAI MD REFERRING PHYSICIAN: ERIS BAY MD DATE OF CONSULTATION: 03/23/2018 CONSULT REQUESTING PHYSICIAN: Mabel Burdick MD REASON FOR CONSULTATION: Acute metabolic acidosis and respiratory failure. HISTORY OF PRESENT ILLNESS: Ms. Hassan is a 72-year-old female who has a history of end-stage renal disease, admitted with nausea, vomiting, and chronic hypotension. Now, the patient is emergently intubated. Now, she is orally intubated and sedated. History was taken mainly by reviewing the patient's note and talking to Dr. Burdick. REVIEW OF SYSTEMS: Mainly in the history of present illness. PAST MEDICAL HISTORY: 1. End-stage renal disease, on hemodialysis. 2. Hypertension. 3. Coronary artery disease. 4. History of aortic valve replacement. 5. Chronic obstructive pulmonary disease. 6. Narcolepsy. 7. History of ovarian carcinoma. 8. Anxiety, depression. 9. Cirrhosis of liver. PAST SURGICAL HISTORY: 1. Cholecystectomy. 2. Knee replacement. 3. Herniorrhaphy. 4. Cataract surgery. 5. History of . 6. Foot and arm surgery. 7. Hysterectomy. 8. Aortic valve replacement. 9. Neck surgery. 10. Fistula placement for the dialysis. 11. Laparotomy for duodenal ulcer perforation. ALLERGIES: SHE IS ALLERGIC TO SULFA, CELEXA, CODEINE, MORPHINE, AND EFFEXOR. MEDICATIONS: [email or web address] is reviewed. PERSONAL AND SOCIAL HISTORY: The patient is a nonsmoker, nondrinker. FAMILY HISTORY: Noncontributory. PHYSICAL EXAMINATION: GENERAL: Now, the patient is orally intubated and sedated. She is on assist control mechanical ventilation, PEEP of 12, 100% oxygen. HEENT: Conjunctiva is pale. Sclerae are not icteric. CONSULT REPORT [id number] TYREE HASSAN NECK: Supple, no JVD. CHEST: There is basal crackle. No wheezing. HEART: Rhythm regular, normal sound. No murmur. ABDOMEN: Soft. Bowel sounds present. RECTAL: Deferred. EXTREMITIES: No cyanosis, no clubbing, no pedal edema. SKIN: Peripheral pulses are present. CENTRAL NERVOUS SYSTEM: The patient is orally intubated and sedated. CHEST RADIOGRAPH: Show increased interstitial marking. The ET tube is in good position. LABORATORY DATA: CBC: The WBC is 11.9, hemoglobin 12.2, hematocrit 37.7, the platelet count 120. Chemistry: Sodium 132, potassium 4.9, BUN is 43, creatinine 6.3. ABG: The pH is 7.08, pCO2 is 31.1, the pO2 is 127, the bicarbonate is 9.3. The lactic acid level is 17.33. IMPRESSION: 1. Acute hypoxic respiratory failure. 2. Pulmonary edema. 3. Metabolic acidosis. 4. Lactic acidosis. 5. Septic shock versus cardiogenic shock. 6. Acute mental status changes secondary to hepatic encephalopathy. Ammonia is 64. 7. End-stage renal disease. 8. Hyperphosphatemia. 9. Cirrhosis of liver. RECOMMENDATION: 1. Continue mechanical ventilation, adjust the setting. 2. Albuterol ipratropium nebulizer. 3. Continue hydrocortisone stress dose. 4. Start vancomycin IV, Zosyn IV, Levaquin IV. 5. GI stress ulcer prevention. 6. DVT prophylaxis. 7. Multiple comorbidities. Prognosis guarded. Followup labs and chest radiograph. The critical care time is [address] Burdick, thank you for involving me in the care of Ms. Hassan. TRANSINT:[id number] Voice Confirmation ID: [id number] DOCUMENT ID: [id number] JOE DESAI MD at 1212 CC: [id number] DICTATION DATE: 03/23/18 1331 WOOD POLE TREATER: 03/23/18 1511 DIS IN 03/24/18 [id number] [place] [address]
--- NOTE | ~2018-03-19 | EC ---
PATIENT:TYREE HANNAH DATE OF SERVICE: 03/19/18 SEX: F MEDICAL RECORD: [id number] DATE OF : [birth year] LOCATION:D. D.212 AGE OF PATIENT: 72 ADMISSION DATE: 03/19/18 REFERRING PHYSICIAN: INTERPRETING PHYSICIAN: TEVIN INIGUEZ MD ECHOCARDIOGRAM REPORT ECHO CHARGES 4 ECHO COMPLETE Date: 03/19 CLINICAL DIAGNOSIS: PAD, HISTORY OF MVR ECHOCARDIOGRAPHIC MEASUREMENTS (adult normal given) AC root (d.<3.7cm) 1.4 cm LV Septum d (<1.2 cm> 1.3 cm Valve Excursion 0.9 cm LV Septum (systole) 1.4 cm Left Atria (s.<4.0cm> 4.6 cm LVPW d(<1.2cm) 1.4 cm RV (d.<2.3cm) 3.2 cm LVPW (sytole) 1.5 cm LV diastole(<5.6CM) 4.1 cm MV E-F(>70mm/sec) cm LV systole 3.4 cm LVOT Diameter 1.4 cm MV exc.(>10mm) cm Est.ejection fraction (50-75%) % DOPPLER: LVIT cm/sec A 133 cm/sec E 206 cm/sec LA cm/sec RVSP 36.4 mmHg LVOT 100 cm/sec AOP1/2T m/s Asc. Ao 259 cm/sec RVOT 181 cm/sec RA cm/sec PA 53 cm/sec AV Gradient Peak 26.8 mmHg AV Mean 17.5 mmHg AV Area 0.6 cm MV Gradient Peak 28.5 mmHg MV Mean 11.7 mmHg MV Area cm COMMENTS: Dance Director: Jesse MATRINEZ Senior Operator: 1 Dr. Iniguez TAPE# PACS Pericardial Effusion N DATE OF SERVICE: 03/20/2018 PROCEDURE: Echocardiogram. FINDINGS: 1. Left ventricular chamber size is within normal limits. Left ventricular systolic function is mildly depressed. Overall ejection fraction 40%. 2. Left atrium is enlarged at 4.6 cm. Right atrium and right ventricle chamber sizes are as well mildly dilated. 3. Valvular structures have normal structure and motion. ECHOCARDIOGRAM REPORT [id number] TYREE HANNAH 4. Doppler interrogation reveals moderate mitral regurgitation, severe tricuspid regurgitation, no other valvular insufficiency or stenosis. Pulmonary systolic pressure is estimated 36 mmHg. 5. No evidence of pericardial effusion or left ventricular thrombus. TRANSINT:[id number] Voice Confirmation ID: [id number] DOCUMENT ID: [id number] TEVIN INIGUEZ MD at 1325 CC: [id number] DICTATION DATE: 03/20/18 1239 EXCHANGE SPECIALIST: 03/20/18 1247 ADM IN [place] [id number] [place] [id number]
--- NOTE | ~2018-03-19 | CN ---
PATIENT NAME:TYREE HASSAN MEDICAL RECORD: [id number] : 43 LOCATION:[facility].2313 ADMIT DATE: 03/19/18 ACCOUNT: [id number] CONSULTING PHYSICIAN: TEVIN KAYE MD REFERRING PHYSICIAN: ERIS BAY MD DATE OF CONSULTATION: 03/21/2018 DIAGNOSES: 1. Chronic hypotension. 2. End-stage renal failure, on dialysis. 3. Peripheral vascular disease. 4. Cardiomyopathy, ejection fraction 40%. 5. Mitral regurgitation. 6. Tricuspid regurgitation. HISTORY OF PRESENT ILLNESS: Ms. Hassan presents with lower extremity pain, discomfort and chronic hypotension. She is known to the renal service. She has end-stage renal failure, on dialysis. She is not on any blood pressure medications. Her systolic blood pressure runs in the 80s. Echocardiogram shows ejection fraction at approximately 40%. No discrete wall motion abnormalities are present. She does have moderate mitral regurgitation, relatively guryohwx-uj-nwqhar tricuspid regurgitation and pulmonary hypertension. The low blood pressure is not a new problem. She has had this in the past. She has been on ProAmatine as an outpatient for this. PHYSICAL EXAMINATION: GENERAL APPEARANCE: Well-nourished, well-developed, appears stated age. Level of distress, comfortable. PSYCHIATRIC: Mental status, alert, normal affect. Orientation, oriented to time, place and person. EYES: Lids and conjunctiva, noninjected. No discharge, no pallor. ENT: Lips, teeth, gums, normal dentition. Oropharynx, no cyanosis, no pallor. NECK: Carotid arteries, bilateral normal upstroke, no bruits, no thrills. JUGULAR VEINS: No jugular venous pressure or distention. CERVICAL LYMPH NODES: Nontender, nonenlarged. THYROID: Not enlarged. Nontender. No nodules. LUNGS: Respiratory effort, unlabored. CHEST: Normal curvature. No thoracic deformity. No chest wall tenderness. Percussion, resonant. Auscultation, clear. No wheezes, no rales, no rhonchi. CARDIOVASCULAR: Precordial exam, nondisplaced. No heaves or pericardial thrills. Rate and rhythm, regular. Heart sounds, normal S1, normal S2. No S3, no gallop, no rub. Systolic murmur, not heard. Diastolic murmur, not heard. EXTREMITIES: No cyanosis, no edema. Peripheral pulses, full and equal in all extremities, except as noted. No bruits appreciated. ABDOMEN: Soft, nondistended. Normal aorta. No bruit. Nontender. No masses. Liver, nontender, no hepatomegaly. Spleen, nontender, no splenomegaly. MUSCULOSKELETAL: No joint tenderness. No joint swelling. No erythema. NEUROLOGICAL: Normal gait, normal strength, normal tone. SKIN: Warm and dry. OVERALL IMPRESSION: Chronic hypotension. Do not think this is cardiac in nature. Ejection fraction 40%, would not result in chronic hypotension. At this point, no other cardiac workup or treatment is necessary. TRANSINT:[id number] Voice Confirmation ID: [id number] DOCUMENT ID: [id number] CONSULT REPORT [id number] TYREE HASSAN, TEVIN GUTIERREZ at 1816 CC: [id number] DICTATION DATE: 03/21/18 1507 RESORT HOUSEKEEPER: 03/21/18 1632 ADM IN [facility] [address] [place] [address]
[~2018-03-19 10:08] MED LIST changes: -FERRIC CITRATE210 MG PO; -GABAPENTIN100 MG PO; -HEMORRHOIDAL OI57 GM TP; -SENSIPAR30 MG PO
[2018-03-19 11:16] LABS: BASOPHILS 0.3 % (0-2); EOSINOPHILS 2.2 % (0-7); HEMATOCRIT 37.1 % (36.0-48.0); HEMOGLOBIN 12.1 g/dL (12-16); IMMATURE GRANULOCYTES 0.2 % (0-5); LYMPHOCYTES 12.4 % (15-50); MCHC 32.6 g/dL (31.0-37.0); MCV 107.2 fL (80.0-100.0); MEAN PLATELET VOLUME 11.7 fL (7.4-10.4); MONOCYTES 11.1 % (2-11); NEUTROPHILS 73.8 % (40-80); PLATELET COUNT 66 10x3/uL (130-400); RBC 3.46 10x6/uL (4.00-5.40); RDW 16.1 % (11.5-14.5); WBC 5.8 10x3/uL (4.8-10.8)
[2018-03-19 11:29] LABS: INR 1.15 (0.85-1.17); PROTIME 14.3 SECONDS (11.6-15.0)
[2018-03-19 11:36] VITALS: BP 91/74
[2018-03-19 11:38] LABS: ALBUMIN 2.9 g/dL (3.4-5.0); ANION GAP 14.6 mmol/L (8-16); BILIRUBIN - TOTAL 1.22 mg/dL (0.2-1.3); CALCIUM 7.2 mg/dL (8.5-10.1); CARBON DIOXIDE 28.6 mmol/L (21.0-32.0); CREATININE - SERUM 4.6 mg/dL (0.6-1.3); PHOSPHOROUS 4.7 mg/dL (2.5-4.9); POTASSIUM - SERUM 4.2 mmol/L (3.5-5.1); PROTEIN - SERUM 8.2 g/dL (6.4-8.2)
[2018-03-19 11:42] VITALS: BP 91/74; BMI 28.3
[2018-03-19 15:56] VITALS: BP 96/71
[2018-03-19] MEDS ORDERED: FERRIC CITRATE210 MG PO (18:23)
[2018-03-19] MEDS ORDERED: COLACE100 MG PO (18:26)
[2018-03-19] MEDS ORDERED: GABAPENTIN100 MG PO (18:29)
[2018-03-19] MEDS ORDERED: RENA-VITE TABL0.8 MG PO (18:30)
[2018-03-19] MEDS ORDERED: SENSIPAR30 MG PO (18:33)
[2018-03-19] MEDS ORDERED: ACETAMINOPHEN325 MG PO (18:34)
[2018-03-19] MEDS ORDERED: HEMORRHOIDAL OI57 GM TP (18:36)
[2018-03-19 21:52] VITALS: BP 98/32
[2018-03-20] VITALS (36 sets, daily range): BP systolic 65–101; BP diastolic 21–58; Ht 165.1 cm; Wt 92.7 kg
[2018-03-20 06:04] LABS: BASOPHILS 0.5 % (0-2); HEMATOCRIT 38.2 % (36.0-48.0); HEMOGLOBIN 12.4 g/dL (12-16); IMMATURE GRANULOCYTES 0.2 % (0-5); LYMPHOCYTES 14.8 % (15-50); MCH 34.6 pg (26.0-34.0); MCHC 32.5 g/dL (31.0-37.0); MCV 106.7 fL (80.0-100.0); MEAN PLATELET VOLUME 11.9 fL (7.4-10.4); MONOCYTES 16.3 % (2-11); NEUTROPHILS 64.2 % (40-80); PLATELET COUNT 74 10x3/uL (130-400); RBC 3.58 10x6/uL (4.00-5.40); RDW 15.8 % (11.5-14.5); WBC 6.3 10x3/uL (4.8-10.8)
[2018-03-20 06:27] LABS: ANION GAP 15.5 mmol/L (8-16); CALCIUM 7.2 mg/dL (8.5-10.1); CARBON DIOXIDE 25.9 mmol/L (21.0-32.0); POTASSIUM - SERUM 4.4 mmol/L (3.5-5.1)
[2018-03-20 06:31] LABS: CREATININE - SERUM 6.3 mg/dL (0.6-1.3)
[2018-03-21] VITALS (96 sets, daily range): BP systolic 71–110; BP diastolic 23–67
[2018-03-21 03:09] LABS: BASOPHILS 0.1 % (0-2); EOSINOPHILS 0.1 % (0-7); HEMATOCRIT 36.6 % (36.0-48.0); HEMOGLOBIN 11.9 g/dL (12-16); IMMATURE GRANULOCYTES 0.4 % (0-5); LYMPHOCYTES 6.5 % (15-50); MCH 34.8 pg (26.0-34.0); MCHC 32.5 g/dL (31.0-37.0); MEAN PLATELET VOLUME 11.8 fL (7.4-10.4); MONOCYTES 7.9 % (2-11); PLATELET COUNT 66 10x3/uL (130-400); RBC 3.42 10x6/uL (4.00-5.40); RDW 15.4 % (11.5-14.5)
[2018-03-21 03:11] LABS: WBC 9.7 10x3/uL (4.8-10.8)
[2018-03-21 03:16] LABS: INR 1.23 (0.85-1.17); PROTIME 15.1 SECONDS (11.6-15.0)
[2018-03-21 03:30] LABS: ANION GAP 23.2 mmol/L (8-16); CARBON DIOXIDE 19.5 mmol/L (21.0-32.0); CREATININE - SERUM 7.6 mg/dL (0.6-1.3); PHOSPHOROUS 8.8 mg/dL (2.5-4.9); POTASSIUM - SERUM 5.7 mmol/L (3.5-5.1); THYROID STIMULATING HORMONE 2.62 uIU/mL (0.36-3.74); VANCOMYCIN - RANDOM 22.8 ug/mL (10.0-20.0)
[2018-03-22] VITALS (94 sets, daily range): BP systolic 50–135; BP diastolic 20–89
[2018-03-22 05:35] LABS: BASOPHILS 0 % (0-2); EOSINOPHILS 0 % (0-7); HEMATOCRIT 36.6 % (36.0-48.0); HEMOGLOBIN 12.2 g/dL (12-16); IMMATURE GRANULOCYTES 0.6 % (0-5); LYMPHOCYTES 3.4 % (15-50); MCH 35.2 pg (26.0-34.0); MCHC 33.3 g/dL (31.0-37.0); MCV 105.5 fL (80.0-100.0); MONOCYTES 10.1 % (2-11); NEUTROPHILS 85.9 % (40-80); PLATELET COUNT 81 10x3/uL (130-400); RBC 3.47 10x6/uL (4.00-5.40); RDW 15.4 % (11.5-14.5); WBC 7.1 10x3/uL (4.8-10.8)
[2018-03-22 05:39] LABS: INR 1.36 (0.85-1.17); PROTIME 16.3 SECONDS (11.6-15.0)
[2018-03-22 05:57] LABS: ALBUMIN 2.9 g/dL (3.4-5.0); BILIRUBIN - DIRECT 0.85 mg/dL (0.00-0.30); BILIRUBIN - INDIRECT 1.14 mg/dL (0.00-1.00); BILIRUBIN - TOTAL 1.99 mg/dL (0.2-1.3); CARBON DIOXIDE 15.6 mmol/L (21.0-32.0); CHOL - HDL RATIO 3.2 ratio (2.3-4.1); CREATININE - SERUM 8.9 mg/dL (0.6-1.3); LDL-HDL RATIO 1.9 ratio (1.5-3.5); PRE-ALBUMIN 13.2 mg/dL (18.0-35.7); PROTEIN - SERUM 8.5 g/dL (6.4-8.2)
[2018-03-22 05:59] LABS: ANION GAP 26.1 mmol/L (8-16); CALCIUM 6.7 mg/dL (8.5-10.1); PHOSPHOROUS 12.6 mg/dL (2.5-4.9); POTASSIUM - SERUM 6.7 mmol/L (3.5-5.1)
[2018-03-23] VITALS (74 sets, daily range): BP systolic 51–135; BP diastolic 41–102
[2018-03-23 04:11] LABS: BASOPHILS 0.1 % (0-2); EOSINOPHILS 0 % (0-7); HEMATOCRIT 37.7 % (36.0-48.0); HEMOGLOBIN 12.2 g/dL (12-16); IMMATURE GRANULOCYTES 1.8 % (0-5); LYMPHOCYTES 5.2 % (15-50); MCH 34.9 pg (26.0-34.0); MCHC 32.4 g/dL (31.0-37.0); MEAN PLATELET VOLUME 11.7 fL (7.4-10.4); MONOCYTES 13.5 % (2-11); NEUTROPHILS 79.4 % (40-80); RDW 15.9 % (11.5-14.5)
[2018-03-23 04:18] LABS: MCV 107.7 fL (80.0-100.0); PLATELET COUNT 120 10x3/uL (130-400); WBC 11.9 10x3/uL (4.8-10.8)
[2018-03-23 04:41] LABS: ANION GAP 38.2 mmol/L (8-16); CARBON DIOXIDE 12.7 mmol/L (21.0-32.0)
[2018-03-23 04:51] LABS: CREATININE - SERUM 6.3 mg/dL (0.6-1.3); PHOSPHOROUS 12.3 mg/dL (2.5-4.9); POTASSIUM - SERUM 4.9 mmol/L (3.5-5.1)
[2018-03-23 12:23] LABS: CREATINE KINASE 321 UL (21-215)
[2018-03-23 12:24] LABS: CKMB 13.9 U/L (0.0-3.6); TROPONIN-I 0.395 ng/mL (0.000-0.060)
[2018-03-23 16:15] LABS: CALCIUM 7.6 mg/dL (8.5-10.1)
[2018-03-23 16:20] LABS: ANION GAP 30.8 mmol/L (8-16); CARBON DIOXIDE 16.2 mmol/L (21.0-32.0); CREATININE - SERUM 4.1 mg/dL (0.6-1.3)
[2018-03-24] VITALS (12 sets, daily range): BP systolic 36–52; BP diastolic 24–45
[2018-03-24 05:07] LABS: BASOPHILS 0.1 % (0-2); EOSINOPHILS 0 % (0-7); HEMATOCRIT 32.4 % (36.0-48.0); HEMOGLOBIN 10.2 g/dL (12-16); IMMATURE GRANULOCYTES 0.8 % (0-5); MCH 34.5 pg (26.0-34.0); MCHC 31.5 g/dL (31.0-37.0); MCV 109.5 fL (80.0-100.0); MEAN PLATELET VOLUME 11.9 fL (7.4-10.4); MONOCYTES 12.4 % (2-11); NEUTROPHILS 80.7 % (40-80); RBC 2.96 10x6/uL (4.00-5.40); RDW 16.4 % (11.5-14.5); WBC 10.5 10x3/uL (4.8-10.8)
[2018-03-24 05:12] LABS: PLATELET COUNT 88 10x3/uL (130-400)
[2018-03-24 05:23] LABS: ALBUMIN 3.6 g/dL (3.4-5.0); BILIRUBIN - DIRECT 2.34 mg/dL (0.00-0.30); BILIRUBIN - INDIRECT 1.07 mg/dL (0.00-1.00); BILIRUBIN - TOTAL 3.41 mg/dL (0.2-1.3); CALCIUM 7.5 mg/dL (8.5-10.1); CREATININE - SERUM 4.9 mg/dL (0.6-1.3); PROTEIN - SERUM 7.2 g/dL (6.4-8.2)
[2018-03-24 05:28] LABS: ANION GAP 35.5 mmol/L (8-16); CARBON DIOXIDE 11.3 mmol/L (21.0-32.0); PHOSPHOROUS 8.2 mg/dL (2.5-4.9); POTASSIUM - SERUM 4.8 mmol/L (3.5-5.1)
[2018-03-24 05:48] LABS: INR 4.08 (0.85-1.17)
[2018-03-24 05:49] LABS: PROTIME 38.1 SECONDS (11.6-15.0)
== END 2018-03-24 13:53 | DRG 299 ==
LOC: D.ICU 10:08 → D.M2 10:08 → D.ICU 03-20 18:32
PROVIDERS: Internal Medicine Gastroenterology; Internal Medicine Nephrology; Internal Medicine Pulmonary Disease; Radiology Diagnostic Radiology
PROC: 06HY33Z Insertion of Infusion Device into Lower Vein, Percutaneous Approach (ICD-10-PCS; 2018-03-21)
PROC: 5A1945Z Respiratory Ventilation, 24-96 Consecutive Hours (ICD-10-PCS; principal; 2018-03-23)
PROC: 0BH17EZ Insertion of Endotracheal Airway into Trachea, Via Natural or Artificial Opening (ICD-10-PCS; 2018-03-23)
DX: I70.223 Atherosclerosis of native arteries of extremities with rest pain, bilateral legs (principal); N18.6 End stage renal disease; J96.01 Acute respiratory failure with hypoxia; G93.41 Metabolic encephalopathy; R04.2 Hemoptysis; J81.1 Chronic pulmonary edema; E87.2 Acidosis; J90 Pleural effusion, not elsewhere classified; I12.0 Hypertensive chronic kidney disease with stage 5 chronic kidney disease or end stage renal disease; E11.22 Type 2 diabetes mellitus with diabetic chronic kidney disease; J44.9 Chronic obstructive pulmonary disease, unspecified; K21.9 Gastro-esophageal reflux disease without esophagitis; D63.1 Anemia in chronic kidney disease; E83.39 Other disorders of phosphorus metabolism; K74.60 Unspecified cirrhosis of liver; G20 Parkinson's disease; I95.89 Other hypotension; Z66 Do not resuscitate; K72.90 Hepatic failure, unspecified without coma; I95.9 Hypotension, unspecified; D69.6 Thrombocytopenia, unspecified; F41.8 Other specified anxiety disorders; Z95.2 Presence of prosthetic heart valve; R16.1 Splenomegaly, not elsewhere classified